=== PATIENT | female | born 1945 | race Caucasian/White ===

== ENCOUNTER → 2016-11-20 11:03 | Outpatient (CLI) | payer MEDICARE, BC | END | disposition home or self-care (01) | LOC: D.CT 11:03 | DX: R93.8 Abnormal findings on diagnostic imaging of other specified body structures (principal) ==

== ENCOUNTER → 2016-12-11 08:46 | Outpatient (CLI) | payer MEDICARE, BC ==
--- NOTE | 2016-12-13 13:54 | EC ---
PATIENT:ANIBAL BARTHOLOMEW DATE OF SERVICE: 12/11/16 SEX: F MEDICAL RECORD: [id number] DATE OF : [birth year] LOCATION:D.RT AGE OF PATIENT: 71 ADMISSION DATE: 12/11/16 REFERRING PHYSICIAN: INTERPRETING PHYSICIAN: PANFILO JAMES MD ECHOCARDIOGRAM REPORT ECHO CHARGES 4 ECHO COMPLETE CLINICAL DIAGNOSIS: HTN/SOB ECHOCARDIOGRAPHIC MEASUREMENTS (adult normal given) AC root (d.<3.7cm) 3.2 cm LV Septum d (<1.2 cm> 1.3 cm Valve Excursion 2.2 cm LV Septum (systole) 2.0 cm Left Atria (s.<4.0cm> 4.4 cm LVPW d(<1.2cm) 1.2 cm RV (d.<2.3cm) 2.8 cm LVPW (sytole) 2.2 cm LV diastole(<5.6CM) 5.0 cm MV E-F(>70mm/sec) cm LV systole 2.6 cm LVOT Diameter 1.8 cm MV exc.(>10mm) cm Est.ejection fraction (50-75%) % Pericardial Effusion N DOPPLER: LVIT cm/sec A 114 cm/sec E 61.0 cm/sec LA cm/sec RVSP 22.1 mmHg LVOT 91.0 cm/sec AOP1/2T m/s Asc. Ao 152 cm/sec RVOT 74.0 cm/sec RA cm/sec PA 137 cm/sec AV Gradient Peak 9.2 mmHg AV Mean 4.3 mmHg AV Area 1.8 cm MV Gradient Peak 7.1 mmHg MV Mean 1.8 mmHg MV Area cm COMMENTS: Label Cutter: 1 OVI AZULOE Fur Buyer: 1 Dr. James TAPE# PACS DATE OF SERVICE: 12/11/2016 Echocardiogram FINDINGS: 1. Left ventricular chamber size is within normal limits. Left ventricular systolic function is normal. Overall ejection fraction estimated at 55%. 2. Left atrium is mildly dilated at 4.4 cm. Right atrium and right ventricular chamber sizes are within normal limits. 3. Valvular structures have normal structure and motion. ECHOCARDIOGRAM REPORT [id number] ANIBAL BARTHOLOMEW 4. Doppler interrogation only reveals trace mitral regurgitation. No other valvular insufficiency or stenosis. 5. No evidence of pericardial effusion or left ventricular thrombus. TRANSINT:[id number] Voice Confirmation ID: [id number] DOCUMENT ID: [id number] PANFILO JAMES MD at 1354 CC: [id number] DICTATION DATE: 12/11/16 1151 RETARDER OPERATOR: 12/11/16 1401 DEP CLI 12/11/16 [place] [id number] [place] [id number]
== END | disposition home or self-care (01) ==
LOC: D.RT 08:46
DX: I10 Essential (primary) hypertension (principal); R06.02 Shortness of breath

== ENCOUNTER 2017-05-29 14:19 | Inpatient (IN) | payer MEDICARE, BC ==
[~2017-05-29] VITALS: Ht 172.7 cm; Wt 95.3 kg
[2017-05-29 15:23] LABS: APPEARANCE CLEAR (CLEAR); COLOR YELLOW (YELLOW); GLUCOSE 250 mg/dL (NEGATIVE); NITRITE NEGATIVE (NEGATIVE); PROTEIN TRACE mg/dL (NEGATIVE); SPECIFIC GRAVITY 1.025 (1.005-1.020)
[2017-05-29 15:24] LABS: BILIRUBIN NEGATIVE (NEGATIVE); KETONE MODERATE mg/dL (NEGATIVE); UROBILINOGEN NORMAL (NORMAL)
[2017-05-29 15:32] LABS: BASOPHILS 0.2 % (0-2); EOSINOPHILS 0.4 % (0-7); HEMATOCRIT 36.9 % (36.0-48.0); HEMOGLOBIN 12.5 g/dL (12-16); LYMPHOCYTES 21.6 % (15-50); MCH 31.8 pg (26.0-34.0); MCHC 33.9 g/dL (31.0-37.0); MCV 93.9 fL (80.0-100.0); MEAN PLATELET VOLUME 10.3 fL (7.4-10.4); MONOCYTES 17.9 % (2-11); NEUTROPHILS 59.9 % (40-80); PLATELET COUNT 180 10x3/uL (130-400); RBC 3.93 10x6/uL (4.00-5.40); WBC 5.3 10x3/uL (4.8-10.8)
[2017-05-29 16:06] LABS: CREATININE - SERUM 0.9 mg/dL (0.6-1.3); POTASSIUM - SERUM 3.7 mmol/L (3.5-5.1)
[2017-05-29 16:07] LABS: ANION GAP 13.4 mmol/L (8-16); CARBON DIOXIDE 25.3 mmol/L (21.0-32.0)
[2017-05-29 16:08] LABS: ALBUMIN 3.3 g/dL (3.4-5.0); BILIRUBIN - TOTAL 0.9 mg/dL (0.2-1.3); PROTEIN - SERUM 6.9 g/dL (6.4-8.2)
[2017-05-29 17:17] LABS: BASOPHILS 0.3 % (0-2); EOSINOPHILS 0 % (0-7); HEMATOCRIT 38.6 % (36.0-48.0); IMMATURE GRANULOCYTES 0.2 % (0-5); MCH 31.9 pg (26.0-34.0); MCHC 33.7 g/dL (31.0-37.0); MCV 94.6 fL (80.0-100.0); MEAN PLATELET VOLUME 10.5 fL (7.4-10.4); MONOCYTES 14.4 % (2-11); NEUTROPHILS 60.1 % (40-80); RBC 4.08 10x6/uL (4.00-5.40); WBC 5.8 10x3/uL (4.8-10.8)
[2017-05-29 17:37] LABS: PLATELET COUNT 219 10x3/uL (130-400)
[2017-05-29 23:26] LABS: CKMB 5.1 U/L (0.0-3.6); CREATINE KINASE 391 UL (21-215)
[2017-05-29 23:27] LABS: TROPONIN-I < 0.017 ng/mL (0.000-0.060)
[2017-05-30 04:03] LABS: HEMATOCRIT 35.4 % (36.0-48.0); HEMOGLOBIN 11.7 g/dL (12-16); MCH 31.6 pg (26.0-34.0); MCHC 33.1 g/dL (31.0-37.0); MCV 95.7 fL (80.0-100.0); MEAN PLATELET VOLUME 10.6 fL (7.4-10.4); RDW 13.2 % (11.5-14.5); WBC 4.9 10x3/uL (4.8-10.8)
[2017-05-30 04:10] LABS: PLATELET COUNT 172 10x3/uL (130-400)
[2017-05-30 04:40] LABS: ALBUMIN 3.6 g/dL (3.4-5.0); ALKALINE PHOSPHATASE 79 U/L (46-116); ALT (SGPT) 27 U/L (10-68); BILIRUBIN - TOTAL 0.63 mg/dL (0.2-1.3); CALC OSMOLALITY 285 mosm/kg (275-300); CALCIUM 9.1 mg/dL (8.5-10.1); CHLORIDE - SERUM 100 mmol/L (98-107); CKMB 5.1 U/L (0.0-3.6); CREATINE KINASE 326 UL (21-215); GLUCOSE 244 mg/dL (74-106); POTASSIUM - SERUM 3.7 mmol/L (3.5-5.1); PROTEIN - SERUM 6.4 g/dL (6.4-8.2); SODIUM 136 mmol/L (136-145); UREA NITROGEN 30 mg/dL (7-18)
[2017-05-30 04:42] LABS: CREATININE - SERUM 1.4 mg/dL (0.6-1.3); TROPONIN-I < 0.017 ng/mL (0.000-0.060); eGFR NON AFRICAN AMERICAN 39 mL/min (90-120)
[2017-05-30 04:54] LABS: LYMPHOCYTES 32 % (15-50); MONOCYTES 14 % (2-11); NEUTROPHILS 53 % (40-80); PLATELET ESTIMATE DECREASED
[2017-05-30 09:53] LABS: CKMB 4.3 U/L (0.0-3.6); CREATINE KINASE 309 UL (21-215); TROPONIN-I < 0.017 ng/mL (0.000-0.060)
[2017-05-30] MEDS ORDERED: HYZAAR 100-25 T1 TAB PO (14:17)
[2017-05-30] MEDS ORDERED: WELLBUTRIN SR150 MG PO (14:18)
[2017-05-30] MEDS ORDERED: CYCLOBENZAPRINE10 MG PO (14:19)
[2017-05-30] MEDS ORDERED: ULTRAM50 MG PO (14:20)
[2017-05-30] MEDS ORDERED: GLIPIZIDE 10 MG (14:20)
[2017-05-30] MEDS ORDERED: LEVOTHYROXINE112 MCG PO (14:21)
[2017-05-30] MEDS ORDERED: PEPCID AC20 MG PO (14:21)
[2017-05-30] MEDS ORDERED: DETROL2 MG PO (14:22)
[2017-05-30] MEDS ORDERED: ZOLOFT100 MG PO (14:22)
[2017-05-30] MEDS ORDERED: PROAIR HFA8.5 GM INH (14:23)
[2017-05-30 14:27] VITALS: BP 184/69; BMI 32.0
[2017-05-30] MEDS ORDERED: TOPROL XL25 MG PO (14:59)
[2017-05-30 16:21] VITALS: BP 156/63
[2017-05-30 20:00] VITALS: BP 152/69
[2017-05-31] VITALS: BP 163/70
[2017-05-31 04:00] VITALS: BP 150/66
[2017-05-31 05:13] LABS: BASOPHILS 0.7 % (0-2); EOSINOPHILS 0.3 % (0-7); HEMATOCRIT 34.8 % (36.0-48.0); HEMOGLOBIN 11.2 g/dL (12-16); LYMPHOCYTES 34.4 % (15-50); MCH 31.3 pg (26.0-34.0); MCHC 32.2 g/dL (31.0-37.0); MCV 97.2 fL (80.0-100.0); MEAN PLATELET VOLUME 10.6 fL (7.4-10.4); MONOCYTES 19.5 % (2-11); NEUTROPHILS 45.1 % (40-80); PLATELET COUNT 148 10x3/uL (130-400); RBC 3.58 10x6/uL (4.00-5.40); RDW 13.2 % (11.5-14.5)
[2017-05-31 05:41] LABS: ALBUMIN 3.2 g/dL (3.4-5.0); ALKALINE PHOSPHATASE 74 U/L (46-116); ALT (SGPT) 27 U/L (10-68); CALC OSMOLALITY 294 mosm/kg (275-300); CALCIUM 8.1 mg/dL (8.5-10.1); CHLORIDE - SERUM 108 mmol/L (98-107); CREATININE - SERUM 0.8 mg/dL (0.6-1.3); GLUCOSE 174 mg/dL (74-106); POTASSIUM - SERUM 3.6 mmol/L (3.5-5.1); PROTEIN - SERUM 5.8 g/dL (6.4-8.2); SODIUM 145 mmol/L (136-145); UREA NITROGEN 19 mg/dL (7-18); eGFR NON AFRICAN AMERICAN 75 mL/min (90-120)
[2017-05-31 08:05] VITALS: BP 180/73
[2017-05-31 11:08] VITALS: Ht 172.7 cm; Wt 95.3 kg
[2017-05-31 12:33] VITALS: BP 155/77
[2017-05-31 15:59] VITALS: BP 147/60
[2017-05-31 20:00] VITALS: BP 149/62
[2017-06-01] VITALS: BP 130/36
[2017-06-01 03:15] LABS: BASOPHILS 0.5 % (0-2); EOSINOPHILS 0.5 % (0-7); HEMATOCRIT 33.6 % (36.0-48.0); HEMOGLOBIN 10.7 g/dL (12-16); LYMPHOCYTES 31.2 % (15-50); MCH 31.8 pg (26.0-34.0); MCHC 31.8 g/dL (31.0-37.0); MEAN PLATELET VOLUME 11.7 fL (7.4-10.4); NEUTROPHILS 50.8 % (40-80); RBC 3.36 10x6/uL (4.00-5.40); RDW 13.5 % (11.5-14.5); WBC 3.7 10x3/uL (4.8-10.8)
[2017-06-01 03:17] LABS: PLATELET COUNT 111 10x3/uL (130-400)
[2017-06-01 04:00] VITALS: BP 143/48
[2017-06-01 04:02] LABS: ALBUMIN 2.8 g/dL (3.4-5.0); ALKALINE PHOSPHATASE 68 U/L (46-116); ALT (SGPT) 24 U/L (10-68); BILIRUBIN - TOTAL 0.56 mg/dL (0.2-1.3); CALCIUM 7.9 mg/dL (8.5-10.1); CARBON DIOXIDE 21.2 mmol/L (21.0-32.0); CHLORIDE - SERUM 107 mmol/L (98-107); CREATININE - SERUM 0.8 mg/dL (0.6-1.3); GLUCOSE 165 mg/dL (74-106); POTASSIUM - SERUM 4.1 mmol/L (3.5-5.1); PROTEIN - SERUM 5.7 g/dL (6.4-8.2); SODIUM 138 mmol/L (136-145); eGFR NON AFRICAN AMERICAN 75 mL/min (90-120)
[2017-06-01 04:06] LABS: CALC OSMOLALITY 280 mosm/kg (275-300); UREA NITROGEN 14 mg/dL (7-18)
[2017-06-01 07:55] VITALS: BP 147/46
[2017-06-01] MEDS ORDERED: OMNICEF300 MG PO (10:13)
== END 2017-06-01 11:06 | disposition home or self-care (01) | DRG 195 ==
LOC: D.ER 14:19 → OBSVTIME 21:26 → D.MS 21:26 → D.SDCHOLD 21:26 → D.MS 05-30 13:26
PROVIDERS: Family Medicine
DX: J18.9 Pneumonia, unspecified organism (principal); R53.1 Weakness; R41.82 Altered mental status, unspecified

== ENCOUNTER → 2017-06-11 13:23 | Outpatient (CLI) | payer MEDICARE, BC ==
[2017-05-31 11:08] VITALS: BMI 31.9
[~2017-06-11 13:23] MED LIST: CYCLOBENZAPRINE10 MG PO; DETROL2 MG PO; GLIPIZIDE 10 MG; HYZAAR 100-25 T1 TAB PO; LEVOTHYROXINE112 MCG PO; OMNICEF300 MG PO; PEPCID AC20 MG PO; PROAIR HFA8.5 GM INH; TOPROL XL25 MG PO; ULTRAM50 MG PO; WELLBUTRIN SR150 MG PO; ZOLOFT100 MG PO
== END | disposition home or self-care (01) ==
LOC: D.CT 13:23
DX: F44.89 Other dissociative and conversion disorders (principal)

== ENCOUNTER → 2017-09-10 11:37 | Outpatient (CLI) | payer MEDICARE, BC ==
[2017-05-31 11:08] VITALS: BMI 31.9
== END | disposition home or self-care (01) ==
LOC: D.CT 11:37
DX: I71.2 Thoracic aortic aneurysm, without rupture (principal)

== ENCOUNTER → 2018-06-17 13:36 | Outpatient (CLI) | payer MEDICARE, BC ==
[2017-05-31 11:08] VITALS: BMI 31.9
== END | disposition home or self-care (01) ==
LOC: D.CT 13:36
DX: I71.2 Thoracic aortic aneurysm, without rupture (principal)

== ENCOUNTER → 2018-07-19 12:44 | Outpatient (CLI) | payer MEDICARE, BC ==
[2017-05-31 11:08] VITALS: BMI 31.9
[2018-07-22 13:14] LABS: ANA REFLEX - DIRECT Negative (Negative)
[2018-07-23 17:11] LABS: FUNGAL - ASP FLAVUS Negative (Neg:<1:1); FUNGAL - ASP NIGER Negative (Neg:<1:1); FUNGAL - ASPER FUMIGATUS Negative (Neg:<1:1)
== END | disposition home or self-care (01) ==
LOC: D.RT 12:44
PROVIDERS: ATTEND Internal Medicine Pulmonary Disease
DX: J45.909 Unspecified asthma, uncomplicated (principal); R91.8 Other nonspecific abnormal finding of lung field

== ENCOUNTER → 2018-07-19 14:50 | Outpatient (CLI) | payer MEDICARE, BC ==
[2017-05-31 11:08] VITALS: BMI 31.9
== END | disposition home or self-care (01) ==
LOC: D.MRI 14:30
PROVIDERS: ATTEND Orthopaedic Surgery
DX: M54.5 Low back pain (principal)

== ENCOUNTER 2018-08-15 18:59 | Inpatient (IN) | payer MEDICARE, BC ==
[~2018-08-15] VITALS: Ht 172.7 cm; Wt 147.4 kg
--- NOTE | ~2018-08-15 | CN ---
PATIENT NAME:ANIBAL BARTHOLOMEW MEDICAL RECORD: [id number] : 47 LOCATION:D.MS [id number] ADMIT DATE: 08/15/18 ACCOUNT: [id number] CONSULTING PHYSICIAN: PANFILO CALZADA MD REFERRING PHYSICIAN: MARY ALICE AHUMADA MD DATE OF CONSULTATION: 08/18/2018 CARDIOLOGY CONSULTATION DIAGNOSES: 1. Increased troponin. 2. Diabetes. 3. Cellulitis. 4. Hypertension. HISTORY OF PRESENT ILLNESS: Ms. Bartholomew presents with cellulitis from a cat scratch on her lower extremity. Her troponin was positive at 1.3. Her EKG is with no ST-T abnormalities. Her echocardiogram was normal with normal LV function, normal wall motion. She has no history of ischemic heart disease. She only has a history of palpitation. She has not had any chest pain or chest discomfort. PHYSICAL EXAMINATION: GENERAL APPEARANCE: Well-nourished, well-developed, appears stated age. Level of distress, comfortable. PSYCHIATRIC: Mental status, alert, normal affect. Orientation, oriented to time, place and person. EYES: Lids and conjunctiva, noninjected. No discharge, no pallor. ENT: Lips, teeth, gums, normal dentition. Oropharynx, no cyanosis, no pallor. NECK: Carotid arteries, bilateral normal upstroke, no bruits, no thrills. JUGULAR VEINS: No jugular venous pressure or distention. CERVICAL LYMPH NODES: Nontender, nonenlarged. THYROID: Not enlarged. Nontender. No nodules. LUNGS: Respiratory effort, unlabored. CHEST: Normal curvature. No thoracic deformity. No chest wall tenderness. Percussion, resonant. Auscultation, clear. No wheezes, no rales, no rhonchi. CARDIOVASCULAR: Precordial exam, nondisplaced. No heaves or pericardial thrills. Rate and rhythm, regular. Heart sounds, normal S1, normal S2. No S3, no gallop, no rub. Systolic murmur, not heard. Diastolic murmur, not heard. EXTREMITIES: No cyanosis, no edema. Peripheral pulses, full and equal in all extremities, except as noted. No bruits appreciated. ABDOMEN: Soft, nondistended. Normal aorta. No bruit. Nontender. No masses. Liver, nontender, no hepatomegaly. Spleen, nontender, no splenomegaly. MUSCULOSKELETAL: No joint tenderness. No joint swelling. No erythema. NEUROLOGICAL: Normal gait, normal strength, normal tone. SKIN: Warm and dry. OVERALL IMPRESSION: Increased troponin, normal EKG, normal echo. At this time, we can safely work her up as an outpatient with stress testing, Cardiolite imaging after this admission. Further care depends upon findings of this stress test. TRANSINT:[id number] Voice Confirmation ID: [id number] DOCUMENT ID: [id number] CONSULT REPORT [id number] ANIBAL BARTHOLOMEW JEFFREY MD CC: [id number] DICTATION DATE: 08/18/18 1006 AIRPLANE DESIGNER: 08/18/18 1328 ADM IN [facility] [address] [place] [id number]
--- NOTE | ~2018-08-15 | EC ---
PATIENT:ANIBAL BARTHOLOMEW DATE OF SERVICE: 08/15/18 SEX: F MEDICAL RECORD: [id number] DATE OF : [birth year] LOCATION:D.MS Loza221 AGE OF PATIENT: 73 ADMISSION DATE: 08/15/18 REFERRING PHYSICIAN: INTERPRETING PHYSICIAN: PANFILO JAMES MD ECHOCARDIOGRAM REPORT ECHO CHARGES 4 ECHO COMPLETE Date: 08/17/18 CLINICAL DIAGNOSIS: ELEVATED TROPONIN ECHOCARDIOGRAPHIC MEASUREMENTS (adult normal given) AC root (d.<3.7cm) 3.7 cm LV Septum d (<1.2 cm> 1.8 cm Valve Excursion 2.3 cm LV Septum (systole) 2.0 cm Left Atria (s.<4.0cm> 3.4 cm LVPW d(<1.2cm) 1.7 cm RV (d.<2.3cm) 3.7 cm LVPW (sytole) 2.0 cm LV diastole(<5.6CM) 4.4 cm MV E-F(>70mm/sec) cm LV systole 2.4 cm LVOT Diameter 2.0 cm MV exc.(>10mm) 1.7 cm Est.ejection fraction (50-75%) % DOPPLER: LVIT cm/sec A 105 cm/sec E 74.0 cm/sec LA cm/sec RVSP 27 mmHg LVOT 97 cm/sec AOP1/2T m/s Asc. Ao 164 cm/sec RVOT 85 cm/sec RA cm/sec PA 141 cm/sec AV Gradient Peak 10.73mmHg AV Mean 5.95 mmHg AV Area 2.1 cm MV Gradient Peak 4.59 mmHg MV Mean 2.39 mmHg MV Area cm COMMENTS: Probation And Parole Officer: Susannah FONG Cattle Dehorner: 1 Dr. James TAPE# PACS Pericardial Effusion N DATE OF SERVICE: 08/17/2018 PROCEDURE: Echocardiogram. FINDINGS: 1. Left ventricular chamber size is within normal limits. Left ventricular systolic function is normal. Overall ejection fraction estimated at 60%. 2. Left atrium is within normal limits at 3.7 cm. Right atrium and right ventricular chamber sizes are mildly dilated. 3. Valvular structures have normal structure and motion. ECHOCARDIOGRAM REPORT [id number] ANIBAL BARTHOLOMEW 4. Doppler interrogation reveals mild tricuspid regurgitation, no other valvular insufficiency or stenosis. Pulmonary systolic pressure is estimated at 27 mmHg. 5. No evidence of pericardial effusion or left ventricular thrombus. TRANSINT:[id number] Voice Confirmation ID: [id number] DOCUMENT ID: [id number] PANFILO JAMES MD CC: [id number] DICTATION DATE: 08/17/18 1247 EQUITY HOLDER: 08/17/18 1418 ADM IN [facility] [address] [place] [address]
[2018-08-15] MEDS ORDERED: ZANAFLEX4 MG PO (19:07)
[2018-08-15] MEDS ORDERED: ATARAX 25 MG TA25 MG PO (19:08)
[2018-08-15] MEDS ORDERED: SINGULAIR10 MG PO (19:09)
[2018-08-15] MEDS ORDERED: BREO ELLIPTA 11 EACH INH (19:09)
[2018-08-15 20:05] LABS: HEMATOCRIT 36.9 % (36.0-48.0); HEMOGLOBIN 12.5 g/dL (12-16); MCH 31.4 pg (26.0-34.0); MCHC 33.9 g/dL (31.0-37.0); MCV 92.7 fL (80.0-100.0); MEAN PLATELET VOLUME 10.9 fL (7.4-10.4); PLATELET COUNT 154 10x3/uL (130-400); RBC 3.98 10x6/uL (4.00-5.40); RDW 13.8 % (11.5-14.5); WBC 22.1 10x3/uL (4.8-10.8)
[2018-08-15 20:06] LABS: APPEARANCE CLEAR (CLEAR); BILIRUBIN NEGATIVE (NEGATIVE); COLOR YELLOW (YELLOW); GLUCOSE 1000 mg/dL (NEGATIVE); KETONE NEGATIVE (NEGATIVE); NITRITE NEGATIVE (NEGATIVE); PROTEIN 1+ mg/dL (NEGATIVE); UROBILINOGEN NORMAL (NORMAL)
[2018-08-15 20:07] LABS: AMORPHOUS SEDIMENT >1+ /lpf (NONE SEEN); BACTERIA MANY /hpf (NONE SEEN); HYALINE CAST 0-5 /lpf (NONE SEEN); RED CELLS - URINE 0-5 /hpf (0-5); WHITE CELLS - URINE 0-5 /hpf (0-5)
[2018-08-15 20:17] LABS: APTT 29.9 SECONDS (22.8-39.4); INR 1.31 (0.85-1.17); PROTIME 15.7 SECONDS (11.6-15.0)
[2018-08-15 20:23] LABS: ALBUMIN 3.8 g/dL (3.4-5.0); ALKALINE PHOSPHATASE 85 U/L (46-116); ALT (SGPT) 28 U/L (10-68); BILIRUBIN - TOTAL 1.09 mg/dL (0.2-1.3); CALC OSMOLALITY 290 mosm/kg (275-300); CALCIUM 9.6 mg/dL (8.5-10.1); CARBON DIOXIDE 22.6 mmol/L (21.0-32.0); CHLORIDE - SERUM 101 mmol/L (98-107); CREATININE - SERUM 1.4 mg/dL (0.6-1.3); POTASSIUM - SERUM 3.6 mmol/L (3.5-5.1); PROTEIN - SERUM 7.3 g/dL (6.4-8.2); SODIUM 135 mmol/L (136-145); UREA NITROGEN 34 mg/dL (7-18); eGFR NON AFRICAN AMERICAN 39 mL/min (90-120)
[2018-08-15 20:25] LABS: GLUCOSE 330 mg/dL (74-106)
[2018-08-15 20:33] LABS: CKMB 9.6 U/L (0.0-3.6); TROPONIN-I 0.057 ng/mL (0.000-0.060)
[2018-08-15 20:38] LABS: CREATINE KINASE 813 UL (21-215)
[2018-08-15 20:38] LABS: LYMPHOCYTES 2 % (15-50); MONOCYTES 10 % (2-11); NEUTROPHILS 87 % (40-80)
[2018-08-15 20:40] LABS: PLATELET ESTIMATE NORMAL; TEAR DROP CELLS OCC
[2018-08-15 22:26] VITALS: BP 164/64; BMI 49.5
[2018-08-15] MEDS ORDERED: FLUTICASONE PRO16 GM NASAL (22:26)
[2018-08-16] VITALS (7 sets, daily range): BP systolic 92–144; BP diastolic 39–75; Ht 172.7 cm; Wt 147.4 kg
--- NOTE | 2018-08-16 07:31 | NUR ---
PT ASLEEP, DID NOT WAKE I ENTERED. DID NOT FURTHER DISTURB AT THIS TIME. CL IN REACH, SRX2.
[2018-08-16 17:09] LABS: CKMB 12.5 U/L (0.0-3.6)
[2018-08-16 17:12] LABS: CREATINE KINASE 984 UL (21-215)
[2018-08-16 18:04] LABS: CHOL - HDL RATIO 2.2 ratio (2.3-4.1)
--- NOTE | 2018-08-16 18:47 | NUR ---
PT IN BATHROOM. HAS DIFICULTY WALKING, X2 ASSIST. PT GETS BAD ANXIETY WITH MOVING. SON AND GRANDDAUGHTER AT BEDSIDE.
[2018-08-17 00:20] LABS: CKMB 11.2 U/L (0.0-3.6)
[2018-08-17 00:25] LABS: CREATINE KINASE 1025 UL (21-215)
[2018-08-17 00:27] LABS: TROPONIN-I 1.065 ng/mL (0.000-0.060)
[2018-08-17 04:00] VITALS: BP 134/48
[2018-08-17 07:20] LABS: CKMB 11.7 U/L (0.0-3.6)
[2018-08-17 07:24] LABS: CREATINE KINASE 1069 UL (21-215); TROPONIN-I 1.068 ng/mL (0.000-0.060)
--- NOTE | 2018-08-17 07:40 | NUR ---
PT IS RESTING IN BED WITH EYES OPEN. RESPIRATIONS ARE EVEN AND UNLABORED. PT REPORTS SLIGHT PAIN IN LOWER BACK AND DESCRIBES CHRONIC SORENESS. REDNESS NOTED TO RIGHT LOWER EXTREMITY. SCABS TO RIGHT LOWER EXTREMITY. BED IS IN THE LOWEST POSITION. CALL LIGHT AND BEDSIDE TABLE ARE WITHIN REACH. WILL CONT TO MONITOR.
[2018-08-17 07:56] VITALS: BP 159/58
[2018-08-17 15:22] LABS: BASOPHILS 0.1 % (0-2); EOSINOPHILS 0.1 % (0-7); HEMATOCRIT 29.7 % (36.0-48.0); IMMATURE GRANULOCYTES 0.3 % (0-5); LYMPHOCYTES 11.6 % (15-50); MCH 30.7 pg (26.0-34.0); MCHC 32.3 g/dL (31.0-37.0); MEAN PLATELET VOLUME 10.8 fL (7.4-10.4); MONOCYTES 13.2 % (2-11); NEUTROPHILS 74.7 % (40-80); RDW 14.5 % (11.5-14.5)
[2018-08-17 15:29] LABS: HEMOGLOBIN 9.6 g/dL (12-16); MCV 94.9 fL (80.0-100.0); PLATELET COUNT 106 10x3/uL (130-400); RBC 3.13 10x6/uL (4.00-5.40); WBC 6.7 10x3/uL (4.8-10.8)
[2018-08-17 15:33] LABS: ANION GAP 15.7 mmol/L (8-16); CALCIUM 8.8 mg/dL (8.5-10.1); CARBON DIOXIDE 21.8 mmol/L (21.0-32.0); CREATININE - SERUM 1.2 mg/dL (0.6-1.3); POTASSIUM - SERUM 3.5 mmol/L (3.5-5.1)
[2018-08-17 16:17] VITALS: BP 129/46
--- NOTE | 2018-08-17 20:00 | NUR ---
ALERT RESTIN GIN BED FAMILY AT BEDSIDE, CALL LIGHT IN REACH
[2018-08-17 20:02] VITALS: BP 132/40
[2018-08-18 00:49] VITALS: BP 144/55
[2018-08-18 05:07] VITALS: BP 151/58
[2018-08-18 07:03] LABS: BASOPHILS 0.2 % (0-2); EOSINOPHILS 0.4 % (0-7); IMMATURE GRANULOCYTES 0.6 % (0-5); LYMPHOCYTES 17.6 % (15-50); MCH 30.9 pg (26.0-34.0); MCHC 32.3 g/dL (31.0-37.0); MCV 95.7 fL (80.0-100.0); MEAN PLATELET VOLUME 10.9 fL (7.4-10.4); MONOCYTES 16.1 % (2-11); NEUTROPHILS 65.1 % (40-80); PLATELET COUNT 116 10x3/uL (130-400); RBC 3.24 10x6/uL (4.00-5.40); RDW 14.4 % (11.5-14.5)
[2018-08-18 07:07] LABS: WBC 4.8 10x3/uL (4.8-10.8)
[2018-08-18 07:11] LABS: ANION GAP 14.9 mmol/L (8-16); CALCIUM 8.8 mg/dL (8.5-10.1); CARBON DIOXIDE 23.2 mmol/L (21.0-32.0)
[2018-08-18 07:15] LABS: POTASSIUM - SERUM 4.1 mmol/L (3.5-5.1)
--- NOTE | 2018-08-18 07:26 | NUR ---
PT IS SITTING UP TO SIDE OF BED. RESPIRATIONS ARE EVEN AND UNLABORED. PT WITH TEARS PRESENT AND REPORTS PAIN IN BACK AND KNEES. PT REQUESTS ASSISTANCE TO BATHROOM. WALKER IS PRESENT. PT ASSISTED TO BATHROOM. PT WITH LARGE VOID. PT ASSISTED BACK TO BED. PT DENIES FURTHER NEEDS. REDNESS TO LEFT LOWER EXTREMITY NOTED. PT DENIES PRESENT OF PAIN WITH LLE. PT DENIES PRESENCE OF N/V AT THIS TIME. BED IS IN THE LOWEST POSITION. CALL LIGHT AND BEDSIDE TABLE ARE WITHIN REACH. FALL PRECAUTIONS ARE IN PLACE. WILL CONT TO MONITOR.
[2018-08-18 08:38] VITALS: BP 177/71
[2018-08-18 12:25] VITALS: BP 168/59
[2018-08-18 17:10] VITALS: BP 156/54
[2018-08-18 19:55] VITALS: BP 157/68
--- NOTE | 2018-08-18 20:00 | NUR ---
ALERT VISITING WITH FAMILY, SEE SHIFT ASSESSMENT, DENIES NEEDS AT THIS TIME
[2018-08-19 00:01] VITALS: BP 140/55
[2018-08-19 06:40] LABS: ANION GAP 14.1 mmol/L (8-16); CALCIUM 9.2 mg/dL (8.5-10.1); CARBON DIOXIDE 25.3 mmol/L (21.0-32.0); CREATININE - SERUM 0.9 mg/dL (0.6-1.3); POTASSIUM - SERUM 4.4 mmol/L (3.5-5.1)
[2018-08-19 06:43] LABS: BASOPHILS 0.2 % (0-2); EOSINOPHILS 0.5 % (0-7); HEMATOCRIT 32.9 % (36.0-48.0); HEMOGLOBIN 10.5 g/dL (12-16); IMMATURE GRANULOCYTES 1.2 % (0-5); LYMPHOCYTES 24.8 % (15-50); MCH 30.3 pg (26.0-34.0); MCHC 31.9 g/dL (31.0-37.0); MCV 94.8 fL (80.0-100.0); MONOCYTES 19.6 % (2-11); NEUTROPHILS 53.7 % (40-80); RBC 3.47 10x6/uL (4.00-5.40); WBC 4.2 10x3/uL (4.8-10.8)
[2018-08-19 06:56] LABS: PLATELET COUNT 144 10x3/uL (130-400)
--- NOTE | 2018-08-19 07:15 | NUR ---
PT IN RESTROOM, STATED SHE HAD A ROUGH NIGHT DUE TO BEING IN PAIN ALL NIGHT, OTHER THAN THAT NO OTHER NEEDS VOICED. BED IN LOW POSITION, CL IN REACH CONTINUE WITH PLAN OF CARE
[2018-08-19 08:44] VITALS: BP 182/84
--- NOTE | 2018-08-19 12:42 | NUR ---
Rehab Note- Acute Inpatient Rehab prescreen order received. Reviewed medical record. The patient has had her PT Eval. When medically stable the patient would be a good inpatient rehab candidate. Will follow at this time. Thank you for this referral! Zhane Sierra RN Clinical Liaison, [facility] Rehab
[2018-08-19 13:15] VITALS: BP 180/62
--- NOTE | 2018-08-19 14:12 | NUR ---
PT HAD IV IN RT UPPER ARM THAT INFILTRATED PT IS A HARD STICK, IVS BLOWN IN HAND WHEN STUCK, PLACED ORDER FOR VASCULAR ACCESS NURSE TO TAKE A LOOK
--- NOTE | 2018-08-19 14:40 | NUR ---
NUTRITION F/U PT TOLERATING RENAL ADA DIET. 100% INTAKE RECENT MEALS. WILL CONTINUE TO PROVIDE DIET, MONITOR PO INTAKE. RD FOLLOWING
--- NOTE | 2018-08-19 15:57 | NUR ---
PT LYING IN BED ON LEFT SIDE, SON AT BEDSIDE, VASCULAR ACCESS NURSE ABLE TO OBTAIN IV ACCESS IN LEFT WRIST, STARTED PT ABX, CONTINUE WITH PLAN OF CARE
[2018-08-19 16:30] VITALS: BP 147/66
--- NOTE | 2018-08-19 20:00 | NUR ---
ASSESSMENT PER FLOWSHEET. IV PATENT RT WRIST SALINE LOCKED. LEFT ANKLE RED IN COLOR. ILANA BED ALARM MAT ON BED YELLOW SAFETY MEASURES IN USE. REFUSES SCD'S. REQUESTING PAIN MED TYLENOL 650MG PO GIVEN FOR CHRONIC BACK PAIN.
--- NOTE | 2018-08-19 21:00 | NUR ---
ROUTINE MEDS GIVEN PER JUL. TEYA=462. 2 UNITS HUMALOG INSULIN GIVEN SUBC RT ARM PER S/S.
[2018-08-19 21:35] VITALS: BP 162/56
--- NOTE | 2018-08-19 22:00 | NUR ---
UP WITH HELP TO BR VOIDS WELL ASSISTED BACK TO BED SR UP X2 CALL LIGHT WITHIN REACH.
--- NOTE | 2018-08-19 23:37 | NUR ---
REQUESTING MUSCLE RELAXOR. ZANAFLEX 4MG PO GIVEN FOR MUSCLE SPASMS.
--- NOTE | 2018-08-20 | NUR ---
AWAKE WATCHING TV.
[2018-08-20 01:14] VITALS: BP 155/65
--- NOTE | 2018-08-20 01:52 | NUR ---
UP WITH HLP TO BR VOIDS WELL. ASSISTED BACK TO BED.
[2018-08-20 04:47] VITALS: BP 166/70
[2018-08-20 05:17] LABS: BASOPHILS 0.2 % (0-2); EOSINOPHILS 0.7 % (0-7); HEMATOCRIT 30.5 % (36.0-48.0); HEMOGLOBIN 9.8 g/dL (12-16); IMMATURE GRANULOCYTES 1.9 % (0-5); LYMPHOCYTES 25.6 % (15-50); MCH 30.3 pg (26.0-34.0); MCHC 32.1 g/dL (31.0-37.0); MCV 94.4 fL (80.0-100.0); MEAN PLATELET VOLUME 11.3 fL (7.4-10.4); MONOCYTES 20.3 % (2-11); NEUTROPHILS 51.3 % (40-80); PLATELET COUNT 134 10x3/uL (130-400); RBC 3.23 10x6/uL (4.00-5.40); RDW 13.9 % (11.5-14.5); WBC 4.2 10x3/uL (4.8-10.8)
[2018-08-20 05:38] LABS: ANION GAP 14.2 mmol/L (8-16); CALCIUM 8.7 mg/dL (8.5-10.1); CARBON DIOXIDE 25.5 mmol/L (21.0-32.0); CREATININE - SERUM 0.9 mg/dL (0.6-1.3)
[2018-08-20 05:42] LABS: POTASSIUM - SERUM 3.7 mmol/L (3.5-5.1)
--- NOTE | 2018-08-20 06:30 | NUR ---
MEDS GIVEN PER JUL DXEW=176 PT REFUSED S/S INSULIN.
--- NOTE | 2018-08-20 08:00 | NUR ---
LYING IN BED,WITHOUT DISTRESS.FAMILY IS AT BEDSIDE
[2018-08-20 08:22] VITALS: BP 162/53
--- NOTE | 2018-08-20 09:17 | NUR ---
PT REQUESTED PAIN MEDICATION, PT PRN PAIN MEDS FELL OFF JUL, REORDERED AND ADMINISTERED, SON AT BEDSIDE, ALL QUESTIONS ANSWERED, NO OTHER NEEDS VOICED, CONTINUE WITH PLAN OF CARE
--- NOTE | 2018-08-20 09:30 | MORECARE ---
CASE MANAGEMENT DISCHARGE SUMMARY PATIENT: ANIBAL BARTHOLOMEW UNIT: [id number] ADM DATE: 08/15/18 AGE: 73 : 46 SEX: F ROOM/BED: D.2216 AUTHOR: CURT NOBLE PHYSICIAN: REFERRING PHYSICIAN: MARY ALICE AHUMADA MD DATE OF SERVICE: 08/20/18 Discharge Plan Patient Name: ANIBAL BARTHOLOMEW Facility: [facility]:[place] : 1945 Planned Disposition: Inpatient Rehab Anticipated Discharge Date: Discharge Date: Expected LOS: Initial Reviewer: [email or web address] Initial Review Date: 08/15/2018 Generated: 08/20/18 10:29 am Coverage Notice Reviewer: [email or web address] - Isabella Graff Notice Issued Date-Time: 08/20/2018 9:15 Notice Type: IM Discharge Notice Notice Delivered To: Patient Relationship to Patient: Machining Technician Name: Delivery Method: HAND - Hand Delivered Destiny Days: Prior Verbal Notification: Recipient Understood Notice: Yes Recipient Signature: Yes Med Rec Note Co-signed by Attending: Coverage Notice Comment: Patient Name: ANIBAL BARTHOLOMEW Page [phone] at 0930 All edits/amendments must be made on the electronic document DICTATION DATE: 08/20/18928 ELEMENTARY SCHOOL MUSIC TEACHER: LIBBY 08/20/18928 RPT#: [id number] DC DATE: STATUS: ADM IN [place] [address] [place] [address] END OF REPORT
--- NOTE | 2018-08-20 09:37 | MORECARE ---
CASE MANAGEMENT DISCHARGE SUMMARY PATIENT: ANIBAL BARTHOLOMEW UNIT: [id number] ADM DATE: 08/15/18 AGE: 73 : 46 SEX: F ROOM/BED: D.2216 AUTHOR: CURT NOBLE PHYSICIAN: REFERRING PHYSICIAN: MARY ALICE AHUMADA MD DATE OF SERVICE: 08/20/18 Discharge Plan Patient Name: ANIBAL BARTHOLOMEW Facility: [facility]:[place] : 1945 Planned Disposition: Inpatient Rehab Anticipated Discharge Date: Discharge Date: Expected LOS: Initial Reviewer: [email or web address] Initial Review Date: 08/15/2018 Generated: 08/20/18 10:36 am Comments DCP- Discharge Planning Updated by [email or web address]: Isabella Graff on 08/20/18 8:[address] IMM served and explained DCP- Discharge Planning Updated by [email or web address]: Iasbella Graff on 08/20/18 8:[address] Patient Name: ANIBAL BARTHOLOMEW Admission Status: ER Accout number: [id number] Admission Date: 08-15-2018 : 1945 Admission Diagnosis:TYPE 2 DIABETES MELLITUS WITH HYPERGLYCEMIA Attending: MARY ALICE AHUMADA Current LOS: 5 Anticipated DC Date: Planned Disposition: Inpatient Rehab Primary Insurance: MEDICARE A & B Discharge Planning Comments: CM met with patient to complete initial dc planning assessment. CM educated patient on the CM role and verbal consent given by patient to complete assessment. Patient lives at home where she is independent with her care, but her son lives next door and checks on her often. At discharge patient would like to go to inpatient rehab here at [facility] and feels this is a safe discharge. CM discussed availability of home health, rehab services, and medical equipment. She currently has and uses a glucometer, wheelchair, shower chair & life alert. Her son Jose will be her driver operator home. Patient denied known discharge needs at this time. CM will continue to follow and will assist as needed with dc plans/needs. Embryology Professor: Isabella Graff DCPIA - Discharge Planning Initial Assessment Updated by [id number]: Isabella Graff on 08/20/18 9:30 am * Is the patient Alert and Oriented? Yes * How many steps to enter\exit or inside your home? RAMP * PCP [facility] * Pharmacy [facility] * Preadmission Environment Home Alone * ADLs Independent * Equipment Glucometer Rolling Walker Shower Chair * List name and contact numbers for known caregivers / representatives who currently or will assist patient after discharge: JOSE (BERTHA) [phone] * Verbal permission to speak to the caregivers and representatives has been obtained from the patient. Yes * Community resources currently utilized None * Additional services required to return to the preadmission environment? Yes * Can the patient safely return to the preadmission environment? Yes * Has this patient been hospitalized within the prior 30 days at any hospital? No Coverage Notice Reviewer: [email or web address] Mitesh Graff Notice Issued Date-Time: 08/20/2018 9:15 Notice Type: IM Discharge Notice Notice Delivered To: Patient Relationship to Patient: Coding Clerk Name: Delivery Method: HAND - Hand Delivered Destiny Days: Prior Verbal Notification: Recipient Understood Notice: Yes Recipient Signature: Yes Med Rec Note Co-signed by Attending: Coverage Notice Comment: Last DP export: 08/20/18 8:30 am Patient Name: ANIBAL BARTHOLOMEW Page [phone] at 0937 All edits/amendments must be made on the electronic document DICTATION DATE: 08/20/18935 JUNIOR PROJECT MANAGER: LIBBY 08/20/18935 RPT#: [id number] DC DATE: STATUS: ADM IN [facility] [address] [place] [address] END OF REPORT
--- NOTE | 2018-08-20 11:44 | NUR ---
Rehab Note- Visited with the patient and her son. She is very willing to come to [facility] Acute Inpatient Rehab. States she lives alone, has had several recent falls, has SOB w/ ambulation, & states she has much difficulty with rising from bed or chair. Will plan to accept to [facility] Acute Inpatient Rehab. Spoke with ALICJA Jalloh. Thank you for this referral! Zhane Sierra RN CLinical Liaison, [facility] Rehab
[2018-08-20] MEDS ORDERED: FLORAJEN3 CAPS460 MG PO (11:50)
[2018-08-20] MEDS ORDERED: MIRALAX17 GM PO (11:50)
[2018-08-20] MEDS ORDERED: ASPIRIN325 MG PO (11:50)
[2018-08-20] MEDS ORDERED: Lovenox INJ SC (11:50)
[2018-08-20] MEDS ORDERED: ACETAMINOPHEN325 MG PO (11:51)
[2018-08-20] MEDS ORDERED: Levaquin PO (11:51)
[2018-08-20] MEDS ORDERED: HUMALOG 30100 UNITS/ SC (11:51)
[2018-08-20] MEDS ORDERED: CLEOCIN HCL300 MG PO (11:52)
--- NOTE | 2018-08-20 11:55 | MORECARE ---
CASE MANAGEMENT DISCHARGE SUMMARY PATIENT: ANIBAL BARTHOLOMEW UNIT: [id number] ADM DATE: 08/15/18 AGE: 73 : 46 SEX: F ROOM/BED: D.2216 AUTHOR: CURT NOBLE PHYSICIAN: REFERRING PHYSICIAN: MARY ALICE AHUMADA MD DATE OF SERVICE: 08/20/18 Discharge Plan Patient Name: ANIBAL BARTHOLOMEW Facility: [facility]:[place] : 1945 Planned Disposition: Inpatient Rehab Anticipated Discharge Date: Discharge Date: Expected LOS: Initial Reviewer: [email or web address] Initial Review Date: 08/15/2018 Generated: 08/20/18 12:55 pm Comments DCP- Discharge Planning Updated by [id number]: Isabella Graff on 08/20/18 10:[address] PATIENT HAS BEEN ACCEPTED TO INPATIENT REHAB @ [facility] TODAY DCP- Discharge Planning Updated by [id number]: Isabella Graff on 08/20/18 8:[address] IMM served and explained DCP- Discharge Planning Updated by [email or web address]: Isabella Graff on 08/20/18 8:[address] Patient Name: ANIBAL BARTHOLOMEW Admission Status: ER Accout number: [id number] Admission Date: 08-15-2018 : 1945 Admission Diagnosis:TYPE 2 DIABETES MELLITUS WITH HYPERGLYCEMIA Attending: MARY ALICE AHUMADA Current LOS: 5 Anticipated DC Date: Planned Disposition: Inpatient Rehab Primary Insurance: MEDICARE A & B Discharge Planning Comments: CM met with patient to complete initial dc planning assessment. CM educated patient on the CM role and verbal consent given by patient to complete assessment. Patient lives at home where she is independent with her care, but her son lives next door and checks on her often. At discharge patient would like to go to inpatient rehab here at [facility] and feels this is a safe discharge. CM discussed availability of home health, rehab services, and medical equipment. She currently has and uses a glucometer, wheelchair, shower chair & life alert. Her son Jose will be her chassis driver home. Patient denied known discharge needs at this time. CM will continue to follow and will assist as needed with dc plans/needs. Reed Fixer: Isabella Graff DCPIA - Discharge Planning Initial Assessment Updated by [email or web address]: Isabella Graff on 08/20/18 9:30 am * Is the patient Alert and Oriented? Yes * How many steps to enter\exit or inside your home? RAMP * PCP [facility] * [facility]acy [facility] * Preadmission Environment Home Alone * ADLs Independent * Equipment Glucometer Rolling Walker Shower Chair * List name and contact numbers for known caregivers / representatives who currently or will assist patient after discharge: JOSE (BERTHA) [phone] * Verbal permission to speak to the caregivers and representatives has been obtained from the patient. Yes * Community resources currently utilized None * Additional services required to return to the preadmission environment? Yes * Can the patient safely return to the preadmission environment? Yes * Has this patient been hospitalized within the prior 30 days at any hospital? No Coverage Notice Reviewer: [id number] - Isabella Graff Notice Issued Date-Time: 08/20/2018 9:15 Notice Type: IM Discharge Notice Notice Delivered To: Patient Relationship to Patient: Brothel Keeper Name: Delivery Method: HAND - Hand Delivered Destiny Days: Prior Verbal Notification: Recipient Understood Notice: Yes Recipient Signature: Yes Med Rec Note Co-signed by Attending: Coverage Notice Comment: Last DP export: 08/20/18 8:36 am Patient Name: ANIBAL BARTHOLOMEW Page [phone] at 1155 All edits/amendments must be made on the electronic document DICTATION DATE: 08/20/18 1154 ENGINE WIPER: LIBBY 08/20/18 1154 RPT#: [id number] DC DATE: STATUS: ADM IN [facility] [address] [place] [address] END OF REPORT
[2018-08-20 12:50] VITALS: BP 149/65
--- NOTE | 2018-08-21 12:14 | MORECARE ---
CASE MANAGEMENT DISCHARGE SUMMARY PATIENT: ANIBAL BARTHOLOMEW UNIT: [id number] ADM DATE: 08/15/18 AGE: 73 : 46 SEX: F ROOM/BED: D.2216 AUTHOR: CURT NOBLE PHYSICIAN: REFERRING PHYSICIAN: MARY ALICE AHUMADA MD DATE OF SERVICE: 08/21/18 Discharge Plan Patient Name: ANIBAL BARTHOLOMEW Facility: [facility]:[place] : 1945 Planned Disposition: Inpatient Rehab Anticipated Discharge Date: Discharge Date: 08/20/2018 Expected LOS: 0 Initial Reviewer: [email or web address] Initial Review Date: 08/15/2018 Generated: 08/21/18 1:14 pm Comments DCP- Discharge Planning Updated by [id number]: Isabella Graff on 08/20/18 10:[address] PATIENT HAS BEEN ACCEPTED TO INPATIENT REHAB @ [facility] TODAY DCP- Discharge Planning Updated by [id number]: Isabella Graff on 08/20/18 8:[address] IMM served and explained DCP- Discharge Planning Updated by [id number]: Isabella Graff on 08/20/18 8:[address] Patient Name: ANIBAL BARTHOLOMEW Admission Status: ER Accout number: [id number] Admission Date: 08-15-2018 : 1945 Admission Diagnosis:TYPE 2 DIABETES MELLITUS WITH HYPERGLYCEMIA Attending: MARY ALICE AHUMADA Current LOS: 5 Anticipated DC Date: Planned Disposition: Inpatient Rehab Primary Insurance: MEDICARE A & B Discharge Planning Comments: CM met with patient to complete initial dc planning assessment. CM educated patient on the CM role and verbal consent given by patient to complete assessment. Patient lives at home where she is independent with her care, but her son lives next door and checks on her often. At discharge patient would like to go to inpatient rehab here at [facility] and feels this is a safe discharge. CM discussed availability of home health, rehab services, and medical equipment. She currently has and uses a glucometer, wheelchair, shower chair & life alert. Her son Jose will be her local city driver home. Patient denied known discharge needs at this time. CM will continue to follow and will assist as needed with dc plans/needs. Transcript Evaluator: Isabella Graff DCPIA - Discharge Planning Initial Assessment Updated by [email or web address]: Isabella Graff on 08/20/18 9:30 am * Is the patient Alert and Oriented? Yes * How many steps to enter\exit or inside your home? RAMP * PCP [facility] * [facility]acy [facility] * Preadmission Environment Home Alone * ADLs Independent * Equipment Glucometer Rolling Walker Shower Chair * List name and contact numbers for known caregivers / representatives who currently or will assist patient after discharge: JOSE (SON) [phone] * Verbal permission to speak to the caregivers and representatives has been obtained from the patient. Yes * Community resources currently utilized None * Additional services required to return to the preadmission environment? Yes * Can the patient safely return to the preadmission environment? Yes * Has this patient been hospitalized within the prior 30 days at any hospital? No Coverage Notice Reviewer: [id number] - Isabella Graff Notice Issued Date-Time: 08/20/2018 9:15 Notice Type: IM Discharge Notice Notice Delivered To: Patient Relationship to Patient: Assistant Hvac Mechanic Name: Delivery Method: HAND - Hand Delivered Destiny Days: Prior Verbal Notification: Recipient Understood Notice: Yes Recipient Signature: Yes Med Rec Note Co-signed by Attending: Coverage Notice Comment: Last DP export: 08/20/18 10:55 am Patient Name: ANIBAL BARTHOLOMEW Page [phone] at 1214 All edits/amendments must be made on the electronic document DICTATION DATE: 08/21/18 1214 ICICLE MACHINE OPERATOR: LIBBY 08/21/18 1214 RPT#: [id number] DC DATE:08/20/18 STATUS: DIS IN [facility] [address] [place] [address] END OF REPORT
== END 2018-08-20 17:41 | DRG 872 ==
LOC: D.ER 18:59 → D.MS 21:27 → D.EDHOLD 21:27 → D.MS 21:49
PROVIDERS: Family Medicine; ADMIT Internal Medicine Nephrology; ATTEND Internal Medicine Nephrology
DX: A41.9 Sepsis, unspecified organism (principal); L03.116 Cellulitis of left lower limb; N39.0 Urinary tract infection, site not specified; E11.65 Type 2 diabetes mellitus with hyperglycemia; S80.812A Abrasion, left lower leg, initial encounter; I11.0 Hypertensive heart disease with heart failure; I50.9 Heart failure, unspecified; F32.9 Major depressive disorder, single episode, unspecified

== ENCOUNTER 2018-08-20 17:31 | Inpatient (IN) | payer MEDICARE, BC ==
[~2018-08-20] VITALS: Ht 167.6 cm; Wt 125.2 kg
--- NOTE | 2018-08-20 17:30 | NUR ---
RECIEVED PT/WC.ORIENTED TO ROOM AND SURROUNDINGS.CL IN REACH.SON AT BEDSIDE VISITING.
[~2018-08-20 17:31] MED LIST changes: +ACETAMINOPHEN325 MG PO; +ASPIRIN325 MG PO; +ATARAX 25 MG TA25 MG PO; +BREO ELLIPTA 11 EACH INH; +CLEOCIN HCL300 MG PO; +FLORAJEN3 CAPS460 MG PO; +FLUTICASONE PRO16 GM NASAL; +HUMALOG 30100 UNITS/ SC; +Levaquin PO; +Lovenox INJ SC; +MIRALAX17 GM PO; +SINGULAIR10 MG PO; +ZANAFLEX4 MG PO
[2018-08-20 17:49] VITALS: BP 150/59; BMI 45.6
--- NOTE | 2018-08-20 20:00 | NUR ---
PATIENT RECEIVED SITTING UP IN BED WATCHING TV. ASSESSMENT & VITAL SIGNS DONE. NO C/O PAIN OR DISTRESS. ALARM ON. CALL LIGHT WITHIN REACH. WILL CONTINUE TO MONITOR.
[2018-08-20 21:29] VITALS: BP 150/59
--- NOTE | 2018-08-21 04:17 | NUR ---
PT IN BED LOW POS, EYES CLOSED, AROUSES EASILY TO VOICE, FLUIDS AND CALL LIGHT WITHIN REACH, NO NEEDS NOTED
[2018-08-21 07:58] VITALS: BP 151/64
--- NOTE | 2018-08-21 08:00 | NUR ---
PATIENT IS ALERT/ORIENT. CALL LIGHT WITHIN REACH. WILL CONTINUE WITH PLAN OF CARE
[2018-08-21 08:40] LABS: CALCIUM 8.5 mg/dL (8.5-10.1); CARBON DIOXIDE 26.3 mmol/L (21.0-32.0); CREATININE - SERUM 0.9 mg/dL (0.6-1.3); POTASSIUM - SERUM 3.3 mmol/L (3.5-5.1)
[2018-08-21 08:58] LABS: HEMATOCRIT 31.8 % (36.0-48.0); HEMOGLOBIN 10.2 g/dL (12-16); MCH 30.3 pg (26.0-34.0); MCHC 32.1 g/dL (31.0-37.0); MCV 94.4 fL (80.0-100.0); MEAN PLATELET VOLUME 10.9 fL (7.4-10.4); PLATELET COUNT 156 10x3/uL (130-400); RBC 3.37 10x6/uL (4.00-5.40); RDW 13.9 % (11.5-14.5); WBC 4.3 10x3/uL (4.8-10.8)
--- NOTE | 2018-08-21 10:18 | NUR ---
PATIENT WORKING WITH OCCUPATIONAL THERAPIST. OT EVAL PATIENT WITH SHOWER.
[2018-08-21 10:56] VITALS: Ht 167.6 cm; Wt 125.2 kg
--- NOTE | 2018-08-21 12:00 | NUR ---
GLUCOSE LEVEL 204. FOUR UNITS OF SLIDING SCALE INSULIN GIVEN
[2018-08-21 12:16] LABS: LYMPHOCYTES 32 % (15-50); MONOCYTES 17 % (2-11); NEUTROPHILS 48 % (40-80); PLATELET ESTIMATE NORMAL
--- NOTE | 2018-08-21 13:18 | NUR ---
PRN LOMOTIL GIVEN FOR LOOSE STOOLS PER PATIENT REQUEST
--- NOTE | 2018-08-21 17:39 | NUR ---
PATIENT SITTING UP IN CHAIR BY BEDSIDE. STATED SHE FELT SHAKEY, DIDN'T FEEL RIGHT. PATIENT HELPED BACK IN BED. V/S TAKEN T 98.3, B/P 147/70, P 73, PO 98. R 18. GLUCOSE LEVEL TAKEN 137. WILL CONTINUE TO MONITOR
--- NOTE | 2018-08-21 19:16 | NUR ---
GREETED PATIENT AND INTRODUCED MYSELF. PATIENT IS SITTING ON SIDE OF THE BED AND GRANDDAUGHTER IN CHAIR NEXT TO PATIENT. DENIES ANY NEEDS AT THIS TIME. CALL LIGHT IN REACH.
[2018-08-21 20:02] VITALS: BP 170/90
--- NOTE | 2018-08-22 02:11 | NUR ---
PATIENT AWAKE AND ASKING FOR PRN PAIN MEDICATION FOR LOWER BACK AND HIP PAIN.
--- NOTE | 2018-08-22 03:40 | NUR ---
PATIENT ASLEEP. RESPIRATIONS EVEN. NO S/S OF DISTRESS. CALL LIGHT IN REACH.
--- NOTE | 2018-08-22 07:41 | NUR ---
RESTING QUIETLY IN BED WITH EYES CLOSED. NO S/S DISTRESS. CALL LIGHT IN REACH
[2018-08-22 08:01] VITALS: BP 206/79
--- NOTE | 2018-08-22 10:55 | NUR ---
PATIENT ADMITTED TO REHAB FROM ACUTE FLOOR. DR. GARCIA IS HER PCP. DME AT HOME IS A WHEELCHAIR, SHOWERCHAIR AND SHE HAS LIFE ALERT. DISCHARGE PLANS ARE FOR HER TO RETURN HOME , HER SON LIVES NEXT DOOR AND CHECKS ON HER FREQUENTLY. WILL CONTINUE TO FOLLOW WITH PATIENT.
--- NOTE | 2018-08-22 12:19 | NUR ---
BACK IN BED ASLEEP. HAS HAD THERAPY THIS AM. WAKES EASILY FOR LUNCH. DENIES NEEDS. CALL LIGHT IN REACH. BED IN LOWEST POSITION.
--- NOTE | 2018-08-22 18:39 | NUR ---
SITTING IN WC IN ROOM DOING A PUZZLE BOOK. DENIES NEEDS OR C/O. CALL LIGHT IN REACH
[2018-08-22 19:00] VITALS: BP 138/78
--- NOTE | 2018-08-22 19:24 | NUR ---
PT SITTING UP IN WHEELCHAIR TALKING ON PHONE. CALL LIGHT IN REACH. DENIES NEEDS AT THIS TIME. RESP EVEN AND UNLABORED. A/O X4. BOWEL ACTIVE X4. CONT OF BOWEL AND BLADDER. MIN ASSIST TO BATHROOM. WILL CONTINUE TO MONITOR.
--- NOTE | 2018-08-23 01:00 | NUR ---
RESTING IN BED WITH RESPIRATIONS UNLABORED AND NO DISTRESS NOTED. CALL LIGHT IN REACH.
--- NOTE | 2018-08-23 04:52 | NUR ---
TOILET PT. PT BACK IN BED. CALL LIGHT IN REACH. DENIES NEEDS OR PAIN AT THIS TIME. BED IN LOW. RESP EVEN AND UNLABORED. WCTM
[2018-08-23 07:21] LABS: HEMATOCRIT 32.7 % (36.0-48.0); HEMOGLOBIN 10.6 g/dL (12-16); MCH 30.4 pg (26.0-34.0); MCHC 32.4 g/dL (31.0-37.0); MCV 93.7 fL (80.0-100.0); MEAN PLATELET VOLUME 10.8 fL (7.4-10.4); PLATELET COUNT 177 10x3/uL (130-400); RBC 3.49 10x6/uL (4.00-5.40); RDW 14.2 % (11.5-14.5); WBC 4.9 10x3/uL (4.8-10.8)
[2018-08-23 07:28] LABS: ANION GAP 11.6 mmol/L (8-16); CALCIUM 8.5 mg/dL (8.5-10.1); CARBON DIOXIDE 27.7 mmol/L (21.0-32.0); POTASSIUM - SERUM 3.3 mmol/L (3.5-5.1)
[2018-08-23 08:00] VITALS: BP 170/73
--- NOTE | 2018-08-23 09:19 | NUR ---
IN WC IN ROOM EATING BREAKFAST. IS PLEASANT AND COOPERATIVE. DENIES INCREASED PAIN TO LEGS. USES WALKER AND WC FOR MOTION ASST. CALL LIGHT IN REACH
[2018-08-23 10:32] LABS: LYMPHOCYTES 30 % (15-50); MONOCYTES 17 % (2-11); NEUTROPHILS 50 % (40-80); PLATELET ESTIMATE NORMAL
--- NOTE | 2018-08-23 12:12 | NUR ---
LAYING DOWN IN BED. VISITOR IN ROOM TALKING TO HER. SHE DENIES NEEDS. CALL LIGHT IN REACH
--- NOTE | 2018-08-23 14:55 | NUR ---
NUTRITION F/U PT TOLERATING DIABETIC DIET WITH GOOD INTAKE RECENT MEALS. WILL CONTINUE TO MONITOR PO INTAKE, PT PROGRESS. RD FOLLOWING
--- NOTE | 2018-08-23 15:57 | NUR ---
RESTING QUIETLY IN BED. EYES CLOSED. NO S/S DISTRESS. CALL LIGHT IN REACH
--- NOTE | 2018-08-23 17:43 | NUR ---
SITTING UP IN WC IN ROOM EATING SUPPER. DENIES NEEDS OR C/O. CALL LIGHT IN REACH
--- NOTE | 2018-08-23 19:09 | NUR ---
PATIENT IS STANDING NEXT TO HER BED AND DENIES ANY NEEDS AT THIS TIME. CALL LIGHT IS IN REACH.
[2018-08-23 19:28] VITALS: BP 126/51
--- NOTE | 2018-08-23 21:43 | NUR ---
PT RESTING IN BED WITH EYES OPEN. REQUESTED LIGHTS OUT AT THIS TIME.
--- NOTE | 2018-08-23 23:50 | NUR ---
PT IS RESTING QUIETLY IN BED WITH EYES CLOSED. RESPS ARE EVEN AND UNLABORED. NO ACUTE DISTRESS NOTED.
--- NOTE | 2018-08-24 02:19 | NUR ---
RESTING IN BED WITH EYES CLOSED.
--- NOTE | 2018-08-24 06:21 | NUR ---
PT RESTING IN BED WITH EYES OPEN. PT OFFERED A SHOWER, AND THEN I DISCOVERED WE DO NOT HAVE ANY TOWELS. I INFORMED PT I WOULD OFFER AGAIN TONIGHT.
--- NOTE | 2018-08-24 07:20 | NUR ---
RECEIVED PATIENT. UP IN RESTROOM ALERT AND ORIENTED X4. DENIES ANY NEEDS OR PAIN.
[2018-08-24 08:00] VITALS: BP 126/47
--- NOTE | 2018-08-24 08:30 | NUR ---
SITTING UP I9N CHAIR.CL IN REACH.
--- NOTE | 2018-08-24 09:07 | NUR ---
ADMININSTERED MORNING MEDS WHOLE WITHOUT DIFFICULTY. DENIES ANY NEEDS OR PAIN. RR EVEN AND UNLABORED. CALL LIGHT WITHIN REACH, FALL PRECAUTIONS IN PLACE
--- NOTE | 2018-08-24 14:13 | NUR ---
LYING IN BED ON LEFT SIDE EYES CLOSED RESTING. NO S/S OF ACUTE DISTRESS NOTED. CALL LIGHT WITHIN REACH, FALL PRECAUTIONS IN PLACE
--- NOTE | 2018-08-24 17:10 | NUR ---
SITTING UP ON SIDE OF BED READING MAGAZINE. NO S/S OF ACUTE DISTRESS NOTED. DENIES ANY NEEDS OR PAIN. CALL LIGHT WITHIN REACH, FALL PRECAUTIONS IN PLACE
--- NOTE | 2018-08-24 19:02 | NUR ---
PATIENT IS RESTING IN HER BED. SHE HAS A VISITOR AT BEDSIDE. SHE DENIES ANY NEEDS AT THIS TIME. HER BED IS DOWN LOW WITH SIDE RAILS UP X2 AND CALL LIGHT IS IN REACH.
[2018-08-24 19:45] VITALS: BP 153/59
[2018-08-24 21:45] LABS: APPEARANCE HAZY (CLEAR); BILIRUBIN NEGATIVE (NEGATIVE); COLOR YELLOW (YELLOW); GLUCOSE NEGATIVE (NEGATIVE); KETONE NEGATIVE (NEGATIVE); NITRITE NEGATIVE (NEGATIVE); PROTEIN NEGATIVE (NEGATIVE); SPECIFIC GRAVITY 1.015 (1.005-1.020); UROBILINOGEN NORMAL (NORMAL)
--- NOTE | 2018-08-24 21:47 | NUR ---
PATIENT IS RESTING IN HER BED AND HAS A VISITOR AT BEDSIDE. SHE DENIES ANY NEEDS. HER BED IS DOWN LOW WITH SIDE RAILS UP X2 AND HER CALL LIGHT IS IN REACH.
--- NOTE | 2018-08-24 22:22 | NUR ---
PT IS RESTING QUIETLY IN BED WITH EYES CLOSED. RESPS ARE EVEN AND UNLABORED. NO ACUTE DISTRESS NOTED.
--- NOTE | 2018-08-25 04:28 | NUR ---
RESTING IN BED WITH EYES CLOSED.
[2018-08-25 08:00] VITALS: BP 150/81
--- NOTE | 2018-08-25 08:52 | NUR ---
ADMININSTERED MORNING MEDS WHOLE WITHOUT DIFFICULTY. DENIES ANY NEEDS. C/O SOME MILD DISCOMFORT. CALL LIGHT WITHIN REACH, FALL PRECAUTIONS IN PLACE
--- NOTE | 2018-08-25 13:47 | NUR ---
SITTING UP IN W/C WATCHING TV. DENIES ANY NEEDS OR PAIN.
--- NOTE | 2018-08-25 17:30 | NUR ---
EATING SUPPER DENIES NEEDS.CL IN REACH.
--- NOTE | 2018-08-25 20:00 | NUR ---
PT IS RESTING IN BED WITH EYES OPEN. ALERT AND ORIENTED X 3. PT DENIES ACUTE DISTRESS AT THIS TIME. NO NEEDS VOICED. VSS. SR'S ARE UP X 2 IN BED. CALL LIGHT AND BEDSIDE TABLE ARE WITHIN EASY REACH.
--- NOTE | 2018-08-25 22:27 | NUR ---
PT IS RESTING QUIETLY IN BED WITH EYES CLOSED. RESPS ARE EVEN AND UNLABORED. NO ACUTE DISTRESS NOTED.
--- NOTE | 2018-08-26 00:23 | NUR ---
RESTING IN BED WITH EYES CLOSED.
--- NOTE | 2018-08-26 00:56 | NUR ---
I have reviewed this patient and I concur with the Shift Assessment completed by the Licensed Practical Nurse today this shift.
--- NOTE | 2018-08-26 05:06 | NUR ---
RESTING IN BED WITH EYES CLOSED.
[2018-08-26 08:00] VITALS: BP 177/63
[2018-08-26 08:44] LABS: HEMATOCRIT 36.9 % (36.0-48.0); HEMOGLOBIN 11.8 g/dL (12-16); MCH 30.6 pg (26.0-34.0); MCV 95.8 fL (80.0-100.0); MEAN PLATELET VOLUME 10.8 fL (7.4-10.4); PLATELET COUNT 198 10x3/uL (130-400); RBC 3.85 10x6/uL (4.00-5.40); RDW 14.3 % (11.5-14.5); WBC 8.2 10x3/uL (4.8-10.8)
[2018-08-26 08:47] LABS: ANION GAP 14.3 mmol/L (8-16); CALCIUM 9.3 mg/dL (8.5-10.1); CARBON DIOXIDE 25.8 mmol/L (21.0-32.0); POTASSIUM - SERUM 4.1 mmol/L (3.5-5.1)
[2018-08-26 09:07] LABS: LYMPHOCYTES 11 % (15-50); MONOCYTES 9 % (2-11); NEUTROPHILS 75 % (40-80); PLATELET ESTIMATE NORMAL
--- NOTE | 2018-08-26 09:58 | RHP ---
PATIENT: ANIBAL BARTHOLOMEW MEDICAL RECORD: [id number] ACCOUNT: [id number] LOCATION:[facility] [id number] : 46 ADMISSION DATE: 08/20/18 REHABILITATION HISTORY AND PHYSICAL EXAMINATION POST ADMISSION PHYSICIAN EXAMINATION ADMIT HISTORY AND PHYSICAL AND POST ADMISSION PHYSICAL EXAMINATION FOR REHAB DATE OF ADMISSION: 08/20/2018 ADMITTING DIAGNOSIS: Debility secondary to systemic inflammatory response syndrome. HISTORY OF PRESENT ILLNESS: The patient is a 73-year-old female patient admitted secondary to debility secondary to systemic response syndrome. Morbidly obese 73-year-old female with a BMI of 49. She has type 2 diabetes, hyperglycemia. Presented to ED with lower leg pain, cellulitis, erythema, swelling, and puncture usha. She reports that her cat bit her. She was admitted to the acute hospital. Dr. James was consulted secondary to an elevated troponin. EKG showed no obvious abnormalities. An echo was pretty good for left ventricular function and normal wall motion. She has no history of ischemic heart disease. Her UA was positive for E. coli and group B beta strep. She was started on clindamycin and Levaquin. Blood culture showed no growth. She does have comorbidities, which include hypothyroidism, chronic CHF, depression. Barriers to discharge at this time include self-care deficits, poor activity tolerance, she lives alone, she needs IV antibiotics for extended period of time, she is on Lovenox for DVT prophylaxis, wound care, and a.m. labs needs to be followed on a regular basis. Prior to this illness, she was living independently in her home with a ramp and her son living next door. She is moderately independent with a cane until approximately 3 weeks ago and began using a rolling walker. She is currently supervision to mod assist with ADLs and mod assist with ambulation with a rolling walker requiring rest breaks. She will require intensive inpatient therapy to increase her strength and endurance as she is having difficulty rising from sit to stand and has poor activity tolerance in order to get her back home. Comorbidities in this patient include depression, altered mental status, erythema, chronic CHF, hypothyroidism, hyperglycemia, UTI, left lower lobe atelectasis, cellulitis, diabetes and morbid obesity. PAST MEDICAL HISTORY: Significant for vertigo, hypothyroidism, diabetes, history of pneumonia, hypertension, CHF, arthritis, depression. PAST SURGICAL HISTORY: Includes hysterectomy. She has had a cholecystectomy. ALLERGIES: NONSTEROIDAL ANTI-INFLAMMATORIES AND MEPERIDINE. CURRENT MEDICATIONS: Include hydrochlorothiazide 25 mg daily, losartan 100 mg daily, Zoloft 100 mg daily, metoprolol 25 mg daily. She is on Lovenox 30 mg subcutaneous daily, Synthroid 112 mcg daily, Levaquin 250 mg daily, glipizide 10 mg daily. She is on Breo Ellipta 1 puff daily. She is on Pepcid 20 mg daily, aspirin 325 daily, tramadol 100 mg every 8 hours p.r.n., Detrol 2 mg b.i.d., Zanaflex 4 mg b.i.d., MiraLax 17 g daily as needed, Singulair 10 mg at bedtime. She is on a low-resistant sliding scale with insulin. She is on Flonase nasal spray b.i.d., Flexeril 10 mg daily, clindamycin 300 mg every 6 hours on a scheduled basis. She is on Wellbutrin 150 mg b.i.d., Ventolin 2 puffs every 6 HISTORY AND PHYSICAL [id number] ANIBAL BARTHOLOMEW YVON hours p.r.n., and Tylenol 650 every 4 hours p.r.n. HABITS: No current alcohol or tobacco use. FAMILY HISTORY: Noncontributory. SOCIAL HISTORY: The patient hopes to return back home. She does have family members that live nearby. REVIEW OF SYSTEMS: GENERAL: Does complain of weakness and fatigue. HEENT: Denies cold, cough, or congestion. CARDIOVASCULAR: Denies chest pain. PHYSICAL EXAMINATION: VITAL SIGNS: Stable, afebrile. GENERAL: A morbidly obese female, in no acute distress upon exam. HEENT: Normocephalic and atraumatic. Mucosa moist. NECK: Supple. No lymphadenopathy. LUNGS: Clear in the upper negron at this time. HEART: Regular rate and rhythm. No murmurs, rubs or gallops. ABDOMEN: Obese, but nontender, nondistended. EXTREMITIES: She does have noted changes of vascular insufficiency and also some wounds that are healing at this time, but she does continue to have some edema and swelling. NEUROLOGIC: She does have noted weakness in her core muscles, and she also has noted difficulty in rising from a sitting position. LABORATORY DATA: Labs are pending this morning. ASSESSMENT: This is a 73-year-old female patient admitted to the rehab with a working diagnosis of debility secondary to systemic inflammatory response syndrome. The patient has potential to make improvement. We will institute the following multidisciplinary therapies including, but not limited to, physical, occupational, respiratory, speech, nutritional services, prosthetics, and orthotics. Given her complex medical condition and risk for more complications, rehabilitation services cannot be provided at a lower level of care such as a skilled nurse facility. PLAN: 1. Admit to [facility] for inpatient therapy to include the following disciplines; A. Physical therapy to improve gait, all transfer skills, and bed mobility to modified independent level. B. Occupational therapy to improve activities of daily living to a modified independent level. C. Case management to assist with discharge planning and placement options. D. Nutrition to assist with nutritional needs. E. Rehabilitation nursing to assist in monitoring the patient's underlying medical conditions and to assist with any type of bowel or bladder management. 2. The patient's current medications and medical care will be continued. 3. The patient will be placed on standard fall precautions. 4. The patient's estimated length of stay is approximately 7-10 days. 5. We will work on getting her strength back. We will continue to do wound care to this area, continue on antibiotics and we will discuss with care team. HISTORY AND PHYSICAL [id number] АЛЕКСАНДРSHAUNANIBAL YVON TRANSINT:[id number] Voice Confirmation ID: [id number] DOCUMENT ID: [id number] JUSTIN notes whether there has been none or any medical/functional change since admission: - No change since preadmission screen. JUSTIN attests patient continues to be appropriate for IRF: - Continues to be appropriate. MERLIN MCGUIRE MD at 0958 CC: [id number] DICTATION DATE: 08/21/1839 CLOTHES DESIGNER: 08/21/18 0939 ADM IN [facility] [address] [place] [id number]
--- NOTE | 2018-08-26 10:39 | NUR ---
PATIENT ALERT AND ORIENTED THIS MORNING. ASSISTED UP TO WHEELCHAIR TO EAT BREAKFAST. ATE 100% OF BREAKFAST. REQUESTED TYLENOL TO BE GIVEN BEFORE THERAPY FOR BACK PAIN. TYLEONO GIVEN AT 10:00. UP FOR THERAPY AT THIS TIME. WILL CONTINUE TO MONITOR.
--- NOTE | 2018-08-26 15:49 | NUR ---
RESTING QUIETLY IN ROOM AT THIS TIME. NO COMPLAINTS NOTED. WILL CONTINUE TO MONITOR.
[2018-08-26 19:00] VITALS: BP 111/39
--- NOTE | 2018-08-26 21:15 | NUR ---
PT IS RESTING IN BED WATCHING TV. ALERT AND ORIENTED X 3. DENIES ACUTE DISCOMFORT AT THIS TIME. NO NEEDS VOICED. SR'S ARE UP X 3 IN BED. CALL LIGHT AND BEDSIDE TABLE ARE WITHIN EASY REACH.
--- NOTE | 2018-08-27 00:08 | NUR ---
RESTING QUIETLY IN BED WITH EYES CLOSED. RESPS ARE EVEN AND UNLABORED. NO ACUTE DISTRESS NOTED.
[2018-08-27 08:00] VITALS: BP 144/49
--- NOTE | 2018-08-27 13:28 | NUR ---
Nutrition Follow Up: Pt stated that her appetite was good. RD encouraged pt to continue with good po intake and to make staff aware of food preferences. Diet: ADA 2g Na PO Intake: 100% meal avg BM: 08/26/18 Meds and labs reviewed Rec continue current diet. RD following.
--- NOTE | 2018-08-27 17:56 | NUR ---
PT RESTING WITH EYES OPEN CALL LIGHT IN REACH WILL MONITER
[2018-08-27 19:00] VITALS: BP 143/75
--- NOTE | 2018-08-27 19:42 | NUR ---
PATIENT RECEIVED UPSET THAT SHE HAD LOOSE BM. PATIENT GIVEN LOMOTIL PER ORDER. PATIENT VITAL SIGNS & ASSESSMENT DONE. PATIENT SITTING UP IN WHEELCHAIR. CALL LIGHT WITHIN REACH. WILL CONTINUE TO MONITOR.
--- NOTE | 2018-08-28 01:41 | NUR ---
RESTING IN BED WITH RESPIRATIONS UNLABORED. NO DISTRESS NOTED. CALL LIGHT IN REACH.
--- NOTE | 2018-08-28 04:03 | NUR ---
PATIENT EYES CLOSED. RESPIRATIONS 18 & EVEN. BED LOW. CALL LIGHT WITHIN REACH, WILL CONTINUE TO MONITOR.
[2018-08-28 08:05] LABS: ANION GAP 15.3 mmol/L (8-16); CALCIUM 9.1 mg/dL (8.5-10.1); CARBON DIOXIDE 27.2 mmol/L (21.0-32.0); POTASSIUM - SERUM 4.5 mmol/L (3.5-5.1)
[2018-08-28 08:08] LABS: HEMATOCRIT 33.6 % (36.0-48.0); HEMOGLOBIN 10.7 g/dL (12-16); MCH 30.1 pg (26.0-34.0); MCHC 31.8 g/dL (31.0-37.0); MCV 94.6 fL (80.0-100.0); MEAN PLATELET VOLUME 11.2 fL (7.4-10.4); PLATELET COUNT 189 10x3/uL (130-400); RBC 3.55 10x6/uL (4.00-5.40)
[2018-08-28 08:10] LABS: WBC 4.8 10x3/uL (4.8-10.8)
--- NOTE | 2018-08-28 08:15 | NUR ---
PT RESTING IN BED WITH EYES OPEN CALL LIGHT IN REACH NO PROBLEMS WILL MONITER
[2018-08-28 08:50] LABS: LYMPHOCYTES 30 % (15-50); MONOCYTES 20 % (2-11); NEUTROPHILS 49 % (40-80); PLATELET ESTIMATE NORMAL
[2018-08-28 13:59] VITALS: BP 142/63
--- NOTE | 2018-08-28 18:00 | NUR ---
PT RESTING IN BED WITH EYES OPEN CALL LIGHT IN REACH WILL MONITER
[2018-08-28 19:00] VITALS: BP 122/50
--- NOTE | 2018-08-28 20:00 | NUR ---
PATIENT RECEIVED LYING IN BED ON HER LEFT SIDE. PATIENT HAD NO C/O PAIN OR DISTRESS. ASSESSMENT & VITAL SIGNS DONE. BED LOW. CALL LIGHT & WALKER WITHIN REACH. WILL CONTINUE TO MONITOR,
--- NOTE | 2018-08-29 02:08 | NUR ---
PATIENT EYES CLOSED. RESPIRATIONS 18 & EVEN. BED LOW. CALL LIGHT & BEDSIDE TABLE WITHIN REACH. WILL CONTINUE TO MONITOR.
--- NOTE | 2018-08-29 06:34 | NUR ---
PT IN BED, LOW POSITION, EYES CLOSED, NO NEEDS NOTED, FLUIDS AND CALL LIGHT WITHIN REACH
--- NOTE | 2018-08-29 08:40 | NUR ---
PT AM MEDS ADMINISTERED. PT DENIES NEEDS. WCTM.
[2018-08-29 19:00] VITALS: BP 112/33
--- NOTE | 2018-08-29 19:19 | NUR ---
PATIENT IS IN HER BED. SHE DENIES ANY NEEDS. HER BED IS DOWN LOW WITH SIDE RAILS UP X2. CALL LIGHT IS IN REACH.
--- NOTE | 2018-08-30 00:01 | NUR ---
PATIENT IS SLEEPING. BED IS DOWN LOW WITH SIDE RAILS UP X2. CALL LIGHT IS IN REACH.
--- NOTE | 2018-08-30 04:01 | NUR ---
PATIENT IS SLEEPING. BED IS DOWN LOW WITH SIDE RAILS UP X2. CALL LIGHT IS IN REACH.
[2018-08-30 08:00] VITALS: BP 138/60
[2018-08-30] MEDS ORDERED: NORVASC5 MG PO (08:50)
[2018-08-30] MEDS ORDERED: GLUCOTROL XL 1010 MG PO (08:51)
--- NOTE | 2018-08-30 09:34 | NUR ---
PATIENT DISCHARGING HOME TODAY WITH FAMILY. [facility] WILL PROVIDE THERAPY AT HOME. NO NEW DME NEEDED AT THIS TIME. DR. GARCIA/ERIN DELGADO 09/05/18 @ 9:30, DR. CALZADA/ANTONY DELGADO 09/26/18 @ 11:00. PATIENT CHOICE FORM AND IMFM FORMS SIGNED, COPY GIVEN TO PATIENT AND FILED IN CHART. DISCHARGE INSTRUCTIONS WITH [facility] DATA FAXED TO PCP, HOME HEALTH AND REVIEWED WITH PATIENT.
--- NOTE | 2018-08-30 10:10 | NUR ---
PT AM MEDS ADMINSITERED. PT DENIES NEEDS. WCTM.
--- NOTE | 2018-08-30 11:34 | NUR ---
PT DISCHARGE INSTRUCTIONS REVIEWED. PT STATES UNDERSTANDING. MEDS CALLED IN TO [facility]. PT DISCHARGING HOME WITH FAMILY AT THIS TIME. ESCORTED OUT BY HOSPITAL STAFF.
== END 2018-08-30 11:36 | disposition home health service (06) | DRG 948 ==
LOC: D.REHAB 17:31
PROVIDERS: ADMIT Emergency Medicine; ATTEND Emergency Medicine
DX: R53.81 Other malaise (principal); Z68.42 Body mass index [BMI] 45.0-49.9, adult; N39.0 Urinary tract infection, site not specified; J98.11 Atelectasis; R65.10 Systemic inflammatory response syndrome (SIRS) of non-infectious origin without acute organ dysfunction; L03.116 Cellulitis of left lower limb; E66.01 Morbid (severe) obesity due to excess calories; I11.0 Hypertensive heart disease with heart failure; I50.9 Heart failure, unspecified; F32.9 Major depressive disorder, single episode, unspecified; R41.82 Altered mental status, unspecified; E03.9 Hypothyroidism, unspecified; E11.65 Type 2 diabetes mellitus with hyperglycemia; L53.9 Erythematous condition, unspecified; B96.20 Unspecified Escherichia coli [E. coli] as the cause of diseases classified elsewhere

== ENCOUNTER → 2018-10-04 10:27 | Outpatient (CLI) | payer MEDICARE, BC ==
[2018-08-21 10:56] VITALS: BMI 45.5
--- NOTE | ~2018-10-04 | ST ---
PATIENT:ANIBAL BARTHOLOMEW MEDICAL RECORD: [id number] SEX: F LOCATION:[facility] ORDER #: ADMISSION DATE: 10/04/18 AGE OF PATIENT: 73 REFERRING PHYSICIAN: INTERPRETING PHYSICIAN: PANFILO CALZADA MD DATE OF SERVICE: 10/04/2018 PROCEDURE: Nuclear stress test. INDICATIONS: Shortness of breath, angina, hypertension. She was exercised on standard Lexiscan protocol with 31 mCi of sestamibi injected at peak stress, 11 mCi used previously for rest images. FINDINGS: Gated SPECT reveals preserved ejection fraction at 58% with good wall motioning and thickening and brightening throughout all segments. SPECT IMAGING: Cardiolite was used as myocardial fusion agent. There are definite reversible changes anteriorly, which includes basal, mid apical, and anterior segments as well as the apex itself. The degree of reversibility is mild to moderate. The amount of myocardium involved is moderate. OVERALL IMPRESSION: 1. This is an abnormal nuclear stress test, moderate amount of myocardium is at risk with reversible ischemia anteroapically. 2. Gated SPECT reveals a preserved ejection fraction greater than 50%. Especially with ongoing symptomatology, the current scan does suggest presence of hemodynamically significant coronary artery disease. We will proceed with coronary angiography as followup study. TRANSINT:[id number] Voice Confirmation ID: [id number] DOCUMENT ID: [id number] PANFILO CALZADA MD CC: [id number] DICTATION DATE: 10/07/18 1128 APPRAISAL SPECIALIST: 10/07/18 2312 [facility] CLI 10/04/18 [id number] [place] [address]
[~2018-10-04 10:27] MED LIST changes: +GLUCOTROL XL 1010 MG PO; +NORVASC5 MG PO
== END | disposition home or self-care (01) ==
LOC: D.HCCARDIO 10:27
PROVIDERS: ATTEND Internal Medicine Interventional Cardiology
DX: R94.31 Abnormal electrocardiogram [ECG] [EKG] (principal)

== ENCOUNTER 2018-11-12 07:37 | Outpatient (CLI) | payer MEDICARE, BC ==
--- NOTE | ~2018-11-12 | HEMODYNAMI ---
PATIENT:ANIBAL BARTHOLOMEW MEDICAL RECORD: [id number] : 47 LOCATION:[facility] ADMISSION DATE: 11/12/18 Generatedon:11/12/20189:48 Patient name: ANIBAL BARTHOLOMEW Patient #: [id number] SSN: : 1945 Date of study: 11/12/2018 Page: Of Hemodynamic Procedure Report Patient Data Patient Demographics Procedure consent was obtained First Name: ANIBAL Gender: Female Last Name: [place] : 1945 [facility] Initial: YVON Age: 73 year(s) Patient #: [id number] Race: Unknown Additional ID: [id number] Contact details Address: [address] [place] [address] State: [place] City: [place] Zip code: [address] Past Medical History Allergies Allergen Reaction Date Comments Reported Demerol 11/12/2018 Admission Admission Data Admission Date: 11/12/2018 Admission Time: 7:37 Lab Results Lab Result Date: 11/12/2018 Lab Result Time: 8:32 Biochemistry Name Units Result Min Max BUN mg/dl 28 --(----)-* 7 18 Creatinine mg/dl 1 --(--*-)-- 0.6 1.3 CBC Name Units Result Min Max Hematocrit % 38.3 *-(----)-- 42 54 Hemoglobin g/dl 13 -*(----)-- 13.5 17.5 Procedure Procedure Types Cath Procedure Diagnostic Procedure LHC LHC w/Coronaries Procedure Description Procedure Date Procedure Date: 11/12/2018 Procedure Start Time: 9:41 Procedure End Time: 9:46 Procedure Staff Name Function Hadley Tobias RN Visualization Developer Robi James MD Performing Physician Taylor Garcia RT Scrub Azul Montenegro RN Nurse Joe Narayanan RT Monitor Procedure Data Cath Procedure Fluoroscopy Diagnostic fluoroscopy Total fluoroscopy Time: 0.8 time: 0.8 min min Diagnostic fluoroscopy Total fluoroscopy dose: 545 dose: 545 mGy mGy Contrast Material Contrast Material Type Amount (ml) Isovue 370 50 Entry Location Entry Primary Successful Side Size Upsize Upsize Entry Closure Succes sful Closure Location (Fr) 1 (Fr) 2 (Fr) Remarks Device Remarks Femoral Right 5 Fr Exoseal artery Estimated blood loss: 5 ml Diagnostic catheters Device Type Used For End Catheter Placement MULTIPACK Pigtail 5 Fr Procedure catheter MULTIPACK JL 4.0 5Fr Procedure catheter MULTIPACK 3DRC 5Fr Procedure catheter Procedure Complications No complications Procedure Medications Medication Administration Route Dosage 0.9% NaCl I.V. 100 ml/hr Oxygen etCO2 Nasal cannula 2 l/min Lidocaine 2% added to field 20 Heparin Flush Bag added to field 2 bags (1000units/500ml NS) Versed I.V. 2 mg Fentanyl I.V. 50 mcg Fentanyl I.V. 50 mcg Hemodynamics Rest HGB: 13 (g/dl) Heart Rate: 56 (bpm) Snapshots Pre Cath Intra NCS Post Cath Vital Signs Time Heart Resp SPO2 etCO2 NIBP (mmHg) Rhythm Pain Sedation Rate (ipm) (%) (mmHg) Status Level (bpm) 9:26:23 55 16 99 39 Measuring SB 0 (11) 10(A) , No pain 9:32:46 65 17 97 32.2 Measuring SB 0 (11) 10(A) , No pain 9:37:00 56 19 99 20.2 177/82(116) SB 0 (11) 10(A) , No pain 9:41:26 111 12 100 23.2 169/75(143) SB 0 (11) 9(A) , No pain 9:46:25 56 16 100 33.7 Measuring SB 0 (11) 9(A) , No pain 9:46:54 58 18 100 33.7 177/91(120) SB 0 (11) 10(A) , No pain Medications Time Medication Route Dose Verified Delivered Reason Notes Effe ctiveness by by 9:31:18 0.9% NaCl I.V. 100 Robi Azul used for ml/hr Jacob Montenegro manager shipping 9:31:25 Oxygen etCO2 2 Robi Azul used for Nasal l/min Jacob Montenegro procedure cannula RN 9:31:31 Lidocaine 2% added 20ml Robi Rosenbaum for local to vial Jacob James MD anesthetic field 9:31:35 Heparin Flush added 2 Robi Robi used for Bag to bags Jacob James MD procedure (1000units/500ml field NS) 9:35:14 Fentanyl I.V. 50 Robi Liang for mcg Jacob Montenegro sedation RN 9:35:58 Versed I.V. 2 mg Robi Liang for Jacob Montenegro sedation RN 9:40:58 Fentanyl I.V. 50 Robi Liang for whitney Montenegro sedation microcomputer technician Log Time Note 9:10:58 Hadley Tobias RN sent for patient. Start room use. 9:10:59 Time tracking: Regular hours (M-F 7:00 - 5:00) 9:11:03 Plan of Care:Hemodynamics will remain stable., Cardiac rhythm will remain stable., Comfort level will be maintained., Respiratory function will remain adequate., Patient/ family verbilizes understanding of procedure., Procedure tolerated without complication., Recovers from procedure without complications.. 9:11:05 Signed procedure consent form obtained from patient. 9:11:14 H&P Date Dictated: 11/05/2018 Within 30 days and on chart., H&P Addendum completed by physician on day of procedure. (MUST COMPLETE FOR ALL OUTPATIENTS). 9:13:10 Patient allergic to Demerol 9:16:39 Patient received from Pre/Post Procedure Room to CCL 1 Alert and oriented. Tansferred to table in Supine position. 9:16:40 Correct patient and procedure confirmed by team. 9:16:40 Warm blankets applied, and mathieu hugger turned on for patient comfort. 9:16:41 ECG and BP/O2 sat monitors applied to patient. 9:24:34 Vital chart was started 9:31:18 0.9% NaCl 100 ml/hr I.V. was administered by Azul Montenegro RN; used for procedure; 9:31:25 Oxygen 2 l/min etCO2 Nasal cannula was administered by Azul Montenegro RN; used for procedure; 9:31:28 Baseline sample Acquired. 9:31:31 Rhythm: sinus rhythm 9:31:31 Lidocaine 2% 20ml vial added to field was administered by Robi James MD; for local anesthetic; 9:31:32 Full Disclosure recording started 9:31:33 Pre-procedure instructions explained to patient. 9:31:34 Pre-op teaching completed and patient verbalized understanding. 9:31:35 Family in waiting room. 9:31:35 Heparin Flush Bag (1000units/500ml NS) 2 bags added to field was administered by Robi James MD; used for procedure; 9:31:37 Patient NPO since Midnight. 9:31:39 Is the patient allergic to Iodine/contrast media? No. 9:31:40 Patient diabetic? No. 9:31:40 Is patient on blood thinner?No 9:31:43 Previous problem with sedation/anesthesia? No ? 9:31:44 Snore? Yes 9:31:46 Deviated septum? No 9:31:46 Sleep apnea? No 9:31:47 Sticks out tongue? Yes 9:31:47 Opens mouth fully? Yes 9:31:51 Airway obstruction? Yes copd 9:31:52 Dentures? No ? 9:32:04 Modified Jacky's test Ulnar > 7 seconds. 9:32:05 Patient pain scale 0/10 ?. 9:32:11 IV patent on arrival in left forearm with 0.9% NaCl at [facility]. 9:33:18 Lab Result : Hemoglobin 13 g/dl 9:33:18 Lab Result : Hematocrit 38.3 % 9:33:18 Lab Result : BUN 28 mg/dl 9:33:18 Lab Result : Creatinine 1 mg/dl 9:33:24 Lab results completed and on chart. 9:33:35 Right groin area was prepped with chlora-prep and draped in sterile fashion 9:33:41 Alarms reviewed by R. N. 9:33:42 Sharps counted by scrub and verified by R.N. 9:34:21 Use device set Femoral Dx 9:34:23 ACIST Syringe (19802) opened to sterile field. 9:34:24 Bag Decanter () opened to sterile field. 9:34:25 Medline Cath Pack ([id number]) opened to sterile field. 9:34:35 ACIST Hand Control (62615) opened to sterile field. 9:34:38 DIAGNOSTIC WIRE .035 260cm J wire (518757) opened to sterile field. 9:34:38 ACIST Manifold (47659) opened to sterile field. 9:34:40 Tegaderm 4 x 4 (1626W) opened to sterile field. 9:34:40 DIAGNOSTIC Multipack 5Fr catheter set ([id number]) opened to sterile field. 9:34:41 SHEATH 5FR Spiro ([id number]) opened to sterile field. 9::56 --------ALL STOP TIME OUT------ 9:34:56 Physician arrived ::57 Final Timeout: patient, procedure, and site verified with staff and physician. All members of the team are in agreement. 9:34:59 Right groin site verified by team. 9:35:01 Maximum allowable Isovue 300 dose 300ml. Physician notified. (300ml for normal creatinines. For patients with creatinine of 1.7 or higher multiply weight(kg) x 5 divided by creatinine.) 9:35:05 Fire Safety Assessment: A--An alcohol-based skin anteseptic being used preoperatively., C--Open oxygen or nitrous oxide is being used., D--An ESU, laser, or fiber-optic light is being used. 9:35:12 Physical assessment completed. ASA score P 2 - A patient with mild systemic disease as per Robi James MD. 9:35:14 Fentanyl 50 mcg I.V. was administered by Azul Montenegro RN; for sedation; 9:35:15 Sedation plan: IV Moderate Sedation Medication:Versed, Fentanyl 9:35:58 Versed 2 mg I.V. was administered by Azul Montenegro RN; for sedation; 9:38:55 Zero performed for pressure channel P1 9:40:58 Fentanyl 50 mcg I.V. was administered by Azul Montenegro RN; for sedation; 9:41:02 Procedure started. 9:41:06 Local anesthetic to right femoral artery with Lidocaine 2% by Robi James MD.INITIAL ACCESS ONLY 9:41:12 A 5 Fr sheath was inserted into the Right Femoral artery 9:41:35 A MULTIPACK Pigtail 5 Fr catheter was advanced over the wire and used for Procedure. 9:41:51 LV gram done using CH ::57 Injector settings: Ml/sec: 10, Volume: 20, 9:41:58 LV hemodynamics recorded. 9:42:02 EF : 40 % 9:42:03 Catheter exchanged over wire. 9:42:07 A MULTIPACK JL 4.0 5Fr catheter was advanced over the wire and used for Procedure. 9:42:28 LCA angiography performed. 9:43:10 Zero performed for pressure channel P1 9:43:12 Zero performed for pressure channel P1 9:43:17 Zero performed for pressure channel P1 9:43:25 Catheter exchanged over wire. 9:43:29 A MULTIPACK 3DRC 5Fr catheter was advanced over the wire and used for Procedure. 9:44:03 RCA angiography performed. 9:44:08 Catheter removed. 9:44:20 EXOSEAL 5Fr (EX500) opened to sterile field. 9:44:36 Sheath removed intact; hemostasis achieved with Exoseal to the Right Femoral artery. 9:44:37 Procedure ended.(Physican Out) 9:45:13 Fluoroscopy time 00.80 minutes. 9:45:16 Fluoroscopy dose: 545 mGy 9:45:16 Flurop Dose total: 545 9:45:21 Contrast amount:Isovue 370 50ml. 9:45:26 Sharps counted by scrub and verified by R.N. 9:45:27 Insertion/operative site no bleeding no hematoma. 9:45:29 Post-op/insertion site Right Femoral artery dressed using a 4 x 4 and Tegaderm. 9:45:46 Post right femoral artery:stable, soft, clean and dry 9:45:49 Post-procedure physical assessment completed. ASA score P 2 - A patient with mild systemic disease as per Robi James MD. 9:45:51 Post procedure rhythm: unchanged. 9:45:53 Estimated blood loss: 5 ml 9:45:54 Patient needs reinforcement of post procedure teaching. 9:45:54 Post procedure instruction explained to patient.Patient verbalizes understanding. 9:46:33 Procedure and supply charges have been captured, reviewed, submitted and are correct. 9:46:34 Vital chart was stopped 9:46:39 Procedure Complication : No complications 9:46:41 See physician's report for complete and final results. 9:46:45 Report given to Pre/Post Procedure Room. 9:46:48 Patient transfered to Pre/Post Procedure Room with Stretcher. 9:46:50 Full Disclosure recording stopped 9:46:50 Procedure ended. 9:46:54 End room use (Document Last) Device Usage Item Name Manufacture Quantity Catalog Hospital Part Current Minimal L ot# / Number Charge Number Stock Stock Serial# Code [facility] 1 [id number] [id number] [id number] [id number] 20 Syringe Medical (69552) Systems Inc Bag Microtek 1 2001S 770924 58824 127057 5 Decanter Medical Inc. () Medline Medline 1 [id number] 411950 40040 759640 5 Cath Pack ([id number]) ACIST Hand Acist 1 09124 165346 690135 571382 5 Control Medical (33876) Systems Inc ACIST Acist 1 44872 185243 181277 214269 5 Manifold Medical (98294) Systems Inc DIAGNOSTIC St Roman 1 805978 769649 692559 805519 30 WIRE .035 260cm J wire (342819) DIAGNOSTIC Cardinal 1 [id number] 271040 13883 287588 30 Multipack Health 5Fr catheter set (XC5818) Tegaderm 4 3M 1 1626W 455734 971564 943398 5 x 4 (1626W) SHEATH 5FR Terumo 1 [id number] 994737 535475 667781 5 Spiro (UUN036) MULTIPACK Cardinal 1 590621 5 Pigtail 5 Health Fr catheter MULTIPACK Cardinal 1 693812 5 JL 4.0 5Fr Health catheter MULTIPACK Cardinal 1 026177 5 3DRC 5Fr Health catheter EXOSEAL 5Fr Cardinal 1 EX500 369004 898796 929167 10 (EX500) Health Signature Audit [place] Stage Time Signature Unsigned Intra-Procedure 11/12/2018 Joe Narayanan 9:48:35 AM RT(R) Signatures Monitor : Joe Narayanan RT Signature : Date : Time : [address] [place] [address]
[2018-11-12] MEDS ORDERED: ZOLOFT100 MG PO (08:22)
[2018-11-12] MEDS ORDERED: DULERA 100 MCG8.8 GM INH (08:24)
[2018-11-12] MEDS ORDERED: PEPCID AC20 MG PO (08:24)
[2018-11-12] MEDS ORDERED: ATARAX 25 MG TA25 MG PO (08:28)
[2018-11-12 08:32] VITALS: BP 136/64; BMI 42.5
[2018-11-12 08:59] LABS: CALCIUM 9.9 mg/dL (8.5-10.1); CARBON DIOXIDE 26.2 mmol/L (21.0-32.0); POTASSIUM - SERUM 4.2 mmol/L (3.5-5.1)
[2018-11-12 09:11] LABS: HEMATOCRIT 38.3 % (36.0-48.0); LYMPHOCYTES 24.7 % (15-50); MCH 31.7 pg (26.0-34.0); MCHC 33.9 g/dL (31.0-37.0); MCV 93.4 fL (80.0-100.0); NEUTROPHILS 54.3 % (40-80); WBC 5.2 10x3/uL (4.8-10.8)
[2018-11-12 09:17] LABS: PLATELET COUNT 140 10x3/uL (130-400)
--- NOTE | 2018-11-12 09:50 | NUR ---
PT RECEIVED VIA STRETCHER FROM GENERAL CLERK FOR RECOVERY. PT SLEEPING, BUT AWAKENS TO VERBAL STIMULI. 5FR EXOCELE TO R GROIN, DRESSING CDI NO BLEEDING OR HEMATOMA NOTED. LEG PINK AND WARM AND PEDAL PULSES PALPABLE. HR SINUS REJI, BP 175/75, 02 SAT 99 ON 2L/NC. IV PATENT INFUSING VIA ORDERS. CALL LIGHT IN REACH.
--- NOTE | 2018-11-12 10:15 | NUR ---
PT DROWSY BUT AWAKE, DENIES PAIN OR DISCOMFORT. R GROIN SOFT, DRESSING CDI NO BLEEDING OR HEMATOMA NOTED. PEDAL PULSES PALPABLE. VSS. FAMILY AT BEDSIDE, CALL LIGHT IN REACH.
--- NOTE | 2018-11-12 10:49 | NUR ---
PT RESTING COMFORTABLY, VSS. R GROIN REMAINS SOFT TO TOUCH, DRESSING CDI NO BLEEDING OR SWELLING NOTED. DENIES NEEDS AT THIS TIME, CALL LIGHT IN REACH AND FAMILY AT BEDSIDE. HOB ELEVATED SLIGHTLY, SANDWICH SERVED.
--- NOTE | 2018-11-12 11:15 | NUR ---
PT RESTING W/O COMPLAINTS. R GROIN REMAINS SOFT, DRESSING CDI NO BLEEDING OR SWELLING. PEDAL PULSES PALPABLE, LEG PINK AND WARM. VSS. CALL LIGHT IN REACH
--- NOTE | 2018-11-12 11:40 | NUR ---
IV REMOVED W CATH INTACT, MONITORS AND O2 REMOVED. PT UP TO DRESS FOR DISCHARGE. 1145 TO BR VIA WC, VOIDING W/O DIFFICULITY. GROIN SOFT, NO BLEEDING OR HEMATOMA
--- NOTE | 2018-11-12 12:00 | NUR ---
PT BACK FROM BR. DISCHARGE INSTRUCTIONS REVIEWED W PT AND GRAND DAUGHTER, BOTH VERBALIZED UNDERSTANDING. PT DISCHARGED VIA WC TO PRIVATE VEHICLE WITH ALL BELONGINGS.
--- NOTE | 2018-11-13 10:00 | OP ---
PATIENT NAME: ANIBAL BARTHOLOMEW MEDICAL RECORD: [id number] :47 LOCATION:[facility] ADMISSION DATE: SURGEON: PANFILO CALZADA MD DATE OF OPERATION: 11/12/2018 DATE OF SERVICE: 11/12/2018 PROCEDURES: 1. Left heart catheterization. 2. Selective coronary angiography. 3. Left ventriculogram. INDICATION: Angina, abnormal nuclear stress test. PROCEDURE IN DETAIL: After informed consent was obtained and after a detailed description of the risks, benefits as well as alternative therapies, the patient elected to proceed with angiogram and heart catheterization. The right femoral area was prepped and draped in normal sterile fashion. Right femoral artery was cannulated via modified Seldinger technique with placement of 5-[place] sheath. All catheters exchanged through this sheath. FINDINGS: Left ventriculogram was performed in standard 30-degree CH view, reveals ejection fraction of 50%. SELECTIVE CORONARY ANGIOGRAPHY: Left main, left anterior descending, left circumflex, right coronary are all smooth-walled vessels with no angiographic evidence of coronary artery disease. OVERALL IMPRESSION: 1. No angiographic evidence of coronary artery disease. 2. Normal left heart pressures. 3. Normal left ventricular systolic function. Chest pain is noncardiac in etiology. Stress test was false positive. No other cardiac workup needs to be ascertained. TRANSINT:[id number] Voice Confirmation ID: [id number] DOCUMENT ID: [id number] PANFILO CALZADA MD at 1000 CC: [id number] DICTATION DATE: 11/12/18 0947 RAILRO[address] MAINTENANCE CLERK: 11/12/18 1114 [facility] CLI 11/12/18 [place] [id number]
== END 2018-11-12 12:00 | disposition home or self-care (01) ==
LOC: D.CATH 07:37
PROVIDERS: ATTEND Internal Medicine Interventional Cardiology
DX: R07.89 Other chest pain (principal); Z01.812 Encounter for preprocedural laboratory examination

== ENCOUNTER → 2019-07-28 11:04 | Outpatient (CLI) | payer MEDICARE, BC ==
[~2019-07-28 11:04] MED LIST changes: +DULERA 100 MCG8.8 GM INH
== END | disposition home or self-care (01) ==
LOC: D.CT 10:30 → D.RT 10:30
PROVIDERS: ATTEND Internal Medicine Pulmonary Disease
DX: J45.909 Unspecified asthma, uncomplicated (principal); R91.8 Other nonspecific abnormal finding of lung field

== ENCOUNTER 2019-07-31 11:47 | Emergency (ER) | payer MEDICARE, BC ==
[~2019-07-31] VITALS: Ht 170.2 cm; Wt 117.3 kg
[2019-07-31 11:58] VITALS: Ht 170.2 cm; Wt 117.3 kg
[2019-07-31] MEDS ORDERED: NORVASC10 MG PO (12:51)
[2019-07-31 13:34] VITALS: BP 160/66
== END 2019-07-31 13:35 | disposition home or self-care (01) ==
LOC: D.ER 11:47
DX: I11.0 Hypertensive heart disease with heart failure (principal); I50.9 Heart failure, unspecified; E11.9 Type 2 diabetes mellitus without complications; E07.9 Disorder of thyroid, unspecified; Z79.84 Long term (current) use of oral hypoglycemic drugs

== ENCOUNTER → 2020-08-12 13:07 | Outpatient (CLI) | payer MEDICARE, BC ==
[2019-07-31 11:58] VITALS: BMI 40.5
[~2020-08-12 13:07] MED LIST changes: +NORVASC10 MG PO
== END | disposition home or self-care (01) ==
LOC: D.CT 13:07
PROVIDERS: ATTEND Thoracic Surgery (Cardiothoracic Vascular Surgery)
DX: I71.2 Thoracic aortic aneurysm, without rupture (principal)